=== PATIENT | male | born 1930 | race Caucasian/White ===

== ENCOUNTER 2016-11-28 13:01 | Emergency (ER) | payer MEDICARE, BC ==
[2016-11-28] MEDS ORDERED: IPRATROPIUM/ALBUTEROL 3 ML NEB INH STA (14:31)
[2016-11-28] MEDS ORDERED: IPRATROPIUM/ALBUTEROL 3 ML NEB INH ONE (14:45)
[2016-11-28] MEDS ORDERED: FUROSEMIDE 20 MG/2 ML VIAL IVP STA (16:36)
== END 2016-11-28 17:06 | disposition home or self-care (01) ==
DX: I48.2 Chronic atrial fibrillation (principal); E78.00 Pure hypercholesterolemia, unspecified; Z79.01 Long term (current) use of anticoagulants; I11.0 Hypertensive heart disease with heart failure; I50.9 Heart failure, unspecified; K21.9 Gastro-esophageal reflux disease without esophagitis; Z87.891 Personal history of nicotine dependence
CPT/HCPCS: 36415; 71020; 80053; 83690; 83880; 84484; 85025; 87275; 87276; 93005; 93010; 94640; 99283; 99284; J7620

== ENCOUNTER 2018-12-27 10:42 | Outpatient (CLI) | payer MEDICARE, BC ==
--- NOTE | 2018-12-27 14:19 | XRAY Report ---
Reason: LOW BACK PAIN Procedure Date: 12/27/2018 Accession Number: [id number] / [id number] Procedure: XR - Thoracic Spine 2 View CPT Code: FULL RESULT: EXAM: THORACIC SPINE RADIOGRAPHY EXAM DATE: 12/27/2018 10:56 AM. CLINICAL HISTORY: Pain. COMPARISON: CHEST 2 VIEW PA/LAT 11/28/2016 2:40 PM. TECHNIQUE: 2 views. FINDINGS: Alignment: Normal. No spondylolisthesis or scoliosis. Bones: No definite acute fracture or other bone lesion. Mild upper thoracic intervertebral body height loss and was a previous study. Disks: Generalized small marginal osteophytes. Disk heights are maintained. Soft Tissues: Normal. The visualized lungs and cardiomediastinal silhouette are normal. IMPRESSION: Chronic findings. No acute disease. RADIA
--- NOTE | 2018-12-27 14:25 | XRAY Report ---
Reason: LOW BACK PAIN Procedure Date: 12/27/2018 Accession Number: [id number] / [id number] Procedure: XR - Lumbar Spine 2 View CPT Code: FULL RESULT: EXAM: LUMBOSACRAL SPINE RADIOGRAPHY EXAM DATE: 12/27/2018 11:26 AM. CLINICAL HISTORY: LOW BACK PAIN. COMPARISONS: None. TECHNIQUE: 3 views. FINDINGS: Alignment: Normal. No spondylolisthesis or scoliosis. Bones: 5 lumbar vertebrae. No fractures or bone lesions. Disks: Disk space narrowing at L3-L4, L4-L5, and L5-S1, most marked at L5-S1. Mild marginal lipping at all levels. Facets: Pain degenerative changes most marked at L4-L5 and L5-S1. Sacroiliac Joints: Unremarkable. Soft Tissues: Extensive vascular calcification. Dilation of mid to distal abdominal aorta measuring 3.9 cm. Large amount of stool. IMPRESSION: 1. 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 2. 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 RADIA
== END 2018-12-27 10:43 | disposition home or self-care (01) ==
LOC: DI 10:42
PROVIDERS: ATTEND Nurse Practitioner Family
DX: M47.9 Spondylosis, unspecified (principal); M51.37 Other intervertebral disc degeneration, lumbosacral region; I71.4 Abdominal aortic aneurysm, without rupture
CPT/HCPCS: 72070; 72100

== ENCOUNTER 2020-02-14 14:13 | Emergency (ER) | payer MEDICARE, BC ==
--- NOTE | 2020-02-14 14:20 | ED Physician Documentation ---
PD HPI MALE - Stated complaint Stated Complaint: male gu - History obtained from History obtained from: Patient - History of Present Illness Timing - onset: How many hours ago (1), Today Timing - details: Abrupt onset, Still present (Seems to be tapered off at this point. He does have blood on the pad in his underwear but no apparent clots.) Associated symptoms: Hematuria (He states he went to the bathroom to stool and then felt he needed to urinate so just did that while in the sitting position still. He went to wipe off the tip of the penis and states some of the toilet paper stuck. He rubbed at it to get it off and then had onset of bright red bleeding. He states he did urinate a little bit more and the urine itself seemed clear but was getting blood from just the tip of the penis. He had not noticed any sores or lesions prior to that. He has not had any prior similar episodes.). No: Genital sore / lesion, Testiclar pain, Scrotal swelling Similar symptoms before: Has not had sx before Review of Systems Constitutional: denies: Fever, Chills GI: denies: Abdominal Pain, Nausea, Vomiting, Diarrhea : denies: Dysuria, Frequency, Discharge Skin: denies: Rash PD PAST MEDICAL HISTORY - Past Medical History Cardiovascular: Congestive heart failure, Hypertension, High cholesterol, Atrial fibrillation Respiratory: None Endocrine/Autoimmune: None GI: GERD : None HEENT: Chronic hearing loss Psych: None Musculoskeletal: None, Chronic back pain Derm: Other - Past Surgical History Past Surgical History: Yes Cardiovascular: Other - Present Medications Home Medications: Ambulatory Orders Medication Instructions Recorded Confirmed Amiodarone [Pacerone] 200 mg ORAL DAILY 04/16/15 12/16/15 Atorvastatin [Lipitor] 80 mg ORAL DAILY 04/16/15 12/16/15 Bisoprolol Fumarate [Zebeta] 5 mg ORAL DAILY 04/16/15 12/16/15 Multivit-Min/Folic/Vit K/Lycop 1 tab ORAL DAILY 04/16/15 12/16/15 [One-A-Day Men's 50 Plus Tablet] Doxycycline Monohydrate 100 mg PO BID #14 tablet 12/16/15 Omeprazole [Prilosec] 20 mg PO DAILY 12/16/15 12/16/15 lisinopriL [Lisinopril] 10 mg PO DAILY 12/16/15 12/16/15 Apixaban [Eliquis] 11/29/16 Furosemide [Lasix] 20 mg PO DAILY 11/29/16 11/29/16 - Allergies Allergies/Adverse Reactions: Allergies Allergy/AdvReac Type Severity Reaction Status Date / Time tree nut Allergy Respiratory Verified 04/16/15 23:21 - Social History Does the pt smoke?: No Smoking Status: Former smoker Does the pt drink ETOH?: No Does the pt have substance abuse?: No - Immunizations Immunizations are current?: Yes - POLST Patient has POLST: Yes PD ED PE NORMAL - Vitals Vital signs reviewed: Yes - General General: Alert and oriented X 3, No acute distress, Well developed/nourished - Abdomen Abdomen: Soft, Non tender - Male Male : Other (The patient has some blood on the penis which is bright red. It is cleaned off and there is no external source of bleeding identified. Examination just at the meatus shows there to be an apparent small mucosal tear without bleeding at this time just at the 8 o'clock position at the urethral meatus. Monsel solution is applied gently to the area. There is no further bleeding at this time so and apparent whether that was the cause of it or if there is some blood deeper in the shaft or in the bladder.) - Rectal Rectal: Deferred - Back Back: No CVA TTP - Derm Derm: Normal color, Warm and dry - Neuro Neuro: Alert and oriented X 3, No motor deficit, Normal speech Results - Vitals Vitals: Vital Signs - 24 hr 02/14/20 02/14/20 02/14/20 14:42 14:53 16:09 Temperature 35.5 C L 36.6 C Heart Rate 109 H 100 98 Respiratory 16 16 16 Rate Blood Pressure 153/99 H 148/74 H 141/81 H O2 Saturation 96 98 98 Oxygen O2 Source Room air - Labs Labs: Laboratory Tests 02/14/20 14:20 Urine Color LT RED Urine Clarity BLOODY Urine pH 6.0 Ur Specific [place] 1.020 Urine Protein TRACE Urine Glucose (UA) NEGATIVE Urine Ketones NEGATIVE Urine Occult Blood LARGE H Urine Nitrite NEGATIVE Urine Bilirubin NEGATIVE Urine Urobilinogen 0.2 (NORMAL) Ur Leukocyte Esterase TRACE H Urine RBC TNTC H Urine WBC 0-3 Ur Squamous Epith Cells NONE SEEN Urine Bacteria None Seen Ur Microscopic Review INDICATED Urine Culture Comments INDICATED PD MEDICAL DECISION MAKING - ED course Complexity details: reviewed results (No signs of infection at the urine. No apparent further bleeding at this time. He is cautioned to watch for further blood in the urine and to follow-up with urology if that persists or recurs and may be worthy of following up anyway even if there is not a recurrence.), re- evaluated patient (Patient had another urine here and it showed just a red tingeing with the minimally small clot 1 or 2 mm. Examination of the meatus again did not show any signs of bleeding at the visible part of the opening. I think the bleeding is from down deeper and so I suggested him following up with urology to look for signs of bladder pathology. Meanwhile hold his Eliquis tonight and tomorrow morning and if no further bleeding by that time then to resume the normal medicines. No signs of infection on urine test.), considered differential (This may be a mechanical bleeding from a small mucosal tear near the meatus when he wiped or rubbed the toilet tissue from the area. It could have been hematuria subsequent to his urination but the bleeding onset times with him wiping with the toilet paper rather than the urination itself.), d/w patient Departure - Departure Disposition: 01 Home, Self Care Clinical Impression: Anticoagulant long-term use Hematuria Qualifiers: Hematuria type: gross Qualified Code(s): R31.0 - Gross hematuria Condition: Stable Record reviewed to determine appropriate education?: Yes Instructions: ED Hematuria Follow-Up: Chris Arroyo MD [Primary Care Provider] - Froy Ramírez MD [Provider Admit Priv/Credential] - Comments: Hold your Eliquis tonight and tomorrow morning. If your bleeding has resolved completely, then resume the Eliquis tomorrow night. Follow-up with your primary care and urology for further investigation of the bleeding episode. The Eliquis will make it more easily to bleed but still the worry would be what caused the bleeding. The urologist will sometimes look into the bladder with a small camera to ensure no bladder lesions. Return if significant bleeding persists over the next couple of days. Discharge Date/Time: 02/14/20 16:10
[2020-02-14 15:00] LABS: BILIRUBIN,URINE NEGATIVE (NEGATIVE); GLUCOSE, URINE (UA) NEGATIVE (NEGATIVE); KETONES,URINE (UA) NEGATIVE (NEGATIVE); LEUKOCYTE ESTERASE, URINE TRACE (NEGATIVE); NITRITE,URINE NEGATIVE (NEGATIVE); OCCULT BLOOD,URINE LARGE (NEGATIVE); PROTEIN,URINE TRACE mg/dL (NEGATIVE); UROBILINOGEN,URINE 0.2 (NORMAL) E.U./dL (NORMAL)
[2020-02-14 15:16] LABS: CLARITY,URINE BLOODY (CLEAR)
[2020-02-14 15:24] LABS: BACTERIA,URINE None Seen /HPF (None Seen); RBC,URINE TNTC /HPF (0-5); SQUAMOUS EPITHELIAL CELL,UR NONE SEEN (<= Few)
[2020-02-14 16:10] VITALS: BP 141/81
== END 2020-02-14 16:10 | disposition home or self-care (01) ==
LOC: ED 14:13
DX: R31.0 Gross hematuria (principal); I10 Essential (primary) hypertension; Z87.891 Personal history of nicotine dependence; Z79.01 Long term (current) use of anticoagulants
CPT/HCPCS: 81001; 81003; 87086; 99283; 99284

== ENCOUNTER 2020-02-14 19:22 | Emergency (ER) | payer MEDICARE, BC ==
--- NOTE | 2020-02-14 19:45 | ED Physician Documentation ---
PD HPI MALE - Stated complaint Stated Complaint: MALE - History obtained from History obtained from: Patient - History of Present Illness Timing - onset: Today (89-year-old gentleman on Eliquis was seen earlier in the day for gross hematuria. There was some concern for potentially a little lesion inside the urethra that was bleeding. He went home took a nap for a while and then had another large bloody urination. It is painless. There is no dysuria. He is never had this before.) Review of Systems Constitutional: denies: Fever, Chills GI: denies: Abdominal Pain, Nausea, Vomiting : denies: Dysuria, Frequency, Hesitancy PD PAST MEDICAL HISTORY - Past Medical History Cardiovascular: Congestive heart failure, Hypertension, High cholesterol, Atrial fibrillation Respiratory: None Endocrine/Autoimmune: None GI: GERD : None HEENT: Chronic hearing loss Psych: None Musculoskeletal: None, Chronic back pain Derm: Other - Past Surgical History Past Surgical History: Yes Cardiovascular: Other - Present Medications Home Medications: Ambulatory Orders Medication Instructions Recorded Confirmed Amiodarone [Pacerone] 200 mg ORAL DAILY 04/16/15 12/16/15 Atorvastatin [Lipitor] 80 mg ORAL DAILY 04/16/15 12/16/15 Bisoprolol Fumarate [Zebeta] 5 mg ORAL DAILY 04/16/15 12/16/15 Multivit-Min/Folic/Vit K/Lycop 1 tab ORAL DAILY 04/16/15 12/16/15 [One-A-Day Men's 50 Plus Tablet] Doxycycline Monohydrate 100 mg PO BID #14 tablet 12/16/15 Omeprazole [Prilosec] 20 mg PO DAILY 12/16/15 12/16/15 lisinopriL [Lisinopril] 10 mg PO DAILY 12/16/15 12/16/15 Apixaban [Eliquis] 11/29/16 Furosemide [Lasix] 20 mg PO DAILY 11/29/16 11/29/16 - Allergies Allergies/Adverse Reactions: Allergies Allergy/AdvReac Type Severity Reaction Status Date / Time tree nut Allergy Respiratory Verified 04/16/15 23:21 - Social History Does the pt smoke?: No Smoking Status: Former smoker Does the pt drink ETOH?: No Does the pt have substance abuse?: No - Immunizations Immunizations are current?: Yes - POLST Patient has POLST: Yes PD ED PE NORMAL - Vitals Vital signs reviewed: Yes - General General: Alert and oriented X 3, No acute distress - Male Male : Other (There is a large clot at the meatus, when it is removed it otherwise looks normal. I do not see any active bleeding.) - Neuro Neuro: Alert and oriented X 3, Normal speech Results - Vitals Vitals: Vital Signs - 24 hr 02/14/20 19:30 Temperature 35.9 C L Heart Rate 69 Respiratory 16 Rate Blood Pressure 150/99 H O2 Saturation 96 Oxygen O2 Source Room air PD MEDICAL DECISION MAKING - ED course ED course: 89-year-old gentleman presents with gross hematuria. The pattern sounds like it is a urethral source as opposed to the bladder. He was able to urinate here, it was bloody but not opaque with minimal clots. I offered a catheter which he declined and prefers to see if it will stop on its own. Departure - Departure Disposition: 01 Home, Self Care Clinical Impression: Hematuria Qualifiers: Hematuria type: gross Qualified Code(s): R31.0 - Gross hematuria Condition: Good Record reviewed to determine appropriate education?: Yes Comments: Follow Dr. Esposito's instructions from earlier in the day. Drink plenty of water and return if worse. Follow-up with urologist next week.
[2020-02-14 21:09] VITALS: BP 144/95
== END 2020-02-14 21:08 | disposition home or self-care (01) ==
LOC: ED 19:22
DX: R31.0 Gross hematuria (principal); I10 Essential (primary) hypertension; Z87.891 Personal history of nicotine dependence

== ENCOUNTER 2021-02-28 07:00 | Outpatient (CLI) | payer MEDICARE, BC ==
--- NOTE | 2021-02-28 15:20 | XRAY Report ---
PROCEDURE: Chest 2 View X-Ray INDICATIONS: SHORTNESS OF BREATH TECHNIQUE: 2 view(s) of the chest. COMPARISON: 11/28/2016. FINDINGS: Surgical changes and devices: None. Lungs and pleura: There is mild pulmonary vascular congestion and small right pleural effusion with r ight basilar atelectasis. No gross pneumothorax. Mediastinum: Mildly tortuous thoracic aorta is seen. Heart size is enlarged. Bones and chest wall: No suspicious bony abnormalities. Soft tissues appear unremarkable. IMPRESSION: Cardiomegaly and mild congestion with small right pleural effusion and right basilar ate lectasis. No gross pneumothorax. Reviewed by: Gilberto Baird MD on 02/28/2021 3:18 PM PDT Approved by: Gilberto Baird MD on 02/28/2021 3:18 PM PDT Station ID: [id number]
== END 2021-02-28 23:59 | disposition home or self-care (01) ==
LOC: DI.S 07:00
PROVIDERS: ATTEND Physician Assistant Medical
DX: I51.7 Cardiomegaly (principal); R09.89 Other specified symptoms and signs involving the circulatory and respiratory systems; J90 Pleural effusion, not elsewhere classified; J98.11 Atelectasis; R06.02 Shortness of breath; R53.83 Other fatigue; R42 Dizziness and giddiness; Z79.01 Long term (current) use of anticoagulants
CPT/HCPCS: 36415; 80053; 84443; 85025

== ENCOUNTER 2021-02-28 08:00 | Outpatient (CLI) | payer MEDICARE, BC ==
[2021-02-28 19:55] LABS: BASOPHILS % (AUTO) 0.5 %; EOSINOPHILS # (AUTO) 0.1 10^3/uL (0.0-0.7); EOSINOPHILS % (AUTO) 1.4 %; HCT - HEMATOCRIT 43.6 % (42.0-52.0); HGB - HEMOGLOBIN 13.7 g/dL (14.0-18.0); LYMPHOCYTES # (AUTO) 1.5 10^3/uL (1.5-3.5); LYMPHOCYTES % (AUTO) 17.8 %; MEAN CORPUSCULAR HEMOGLOBIN 32.5 pg (27.0-31.0); MEAN CORPUSCULAR HGB CONC 31.4 g/dL (32.0-36.0); MEAN CORPUSCULAR VOLUME 103.6 fL (80.0-94.0); MEAN PLATELET VOLUME 11.4 fL (7.4-11.4); MONOCYTES # (AUTO) 1.1 10^3/uL (0.0-1.0); NEUTROPHILS # (AUTO) 5.6 10^3/uL (1.5-6.6); NEUTROPHILS % (AUTO) 67.1 %; PLT - PLATELET COUNT 237 10^3/uL (130-450); RED BLOOD COUNT 4.21 10^6/uL (4.70-6.10); WHITE BLOOD COUNT 8.4 x10^3/uL (4.8-10.8)
[2021-02-28 20:11] LABS: ALBUMIN/GLOBULIN RATIO 1.5 (1.0-2.2); BILIRUBIN,TOTAL 2.5 mg/dL (0.2-1.0); CALCIUM 9.3 mg/dL (8.5-10.3); CREATININE 1.1 mg/dL (0.6-1.2); POTASSIUM 4.2 mmol/L (3.5-5.0); TOTAL PROTEIN 6.7 g/dL (6.7-8.2)
[2021-02-28 20:24] LABS: THYROID STIMULATING HORMONE 2.73 uIU/mL (0.34-5.60)
== END 2021-02-28 23:59 | disposition home or self-care (01) ==
LOC: LAB.S 08:00
PROVIDERS: ATTEND Physician Assistant Medical
DX: R06.02 Shortness of breath (principal); R53.83 Other fatigue; R42 Dizziness and giddiness; Z79.01 Long term (current) use of anticoagulants
CPT/HCPCS: 36415; 80053; 84443; 85025

== ENCOUNTER 2021-03-04 11:31 | Observation (INO) | payer MEDICARE, BC ==
--- OUTSIDE RECORDS SUMMARY | 2021-03-04 11:35 | EXTERNAL MEDICAL SUMMARY RPT | Continuity of Care Document ---
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 Unavailable Problems date description facility [id number] Alcohol use [facility] 20210228 CBC W/Diff/Plt [facility] 20210228 Dizziness and giddiness [facility] 20210228 Dizziness [facility] 20210228 Fever with chills [facility] 20210228 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 [facility] 20210228 Long-term (current) use of [facility] 20210228 Shortness of breath [facility] 20210228 TSH WITH REFLEX TO FT4 [facility] 20210228 X-RAY EXAM CHEST 2 VIEWS [facility] 20210228 Anticoagulant therapy [facility] 20210228 COMPREHENSIVE METABOLIC PANEL [facility] 20210228 Details of drug misuse behavior [facility] 20210228 Dyspnea [facility] 20210228 Fatigue [facility] 20210228 Fever, unspecified [facility] 20210228 Former smoker [facility] 20210228 Other fatigue [facility] 20210228 Other malaise and fatigue [facility] 20210228 Tobacco smoking status NHIS [facility] [id number] Total score? [facility] [id number] Congestive heart failure [facility] [id number] Congestive heart failure, unspecified [facility] 62866830 Malignant neoplasm of pancreas, part W [facility] [id number] Malignant neoplasm of pancreas, [facility] 90425692 Heart failure, unspecified [facility] 78854435 Malignant tumor of pancreas [facility] Medications date description facility [id number] APIXABAN [facility] [place] [id number] SPIRONOLACTONE-HCTZ [facility] [place] [id number] FUROSEMIDE [facility] [place] [id number] ATORVASTATIN CALCIUM [facility] [place] [id number] BISOPROLOL FUMARATE [facility] [place] [id number] DIGOXIN [facility] [place] [id number] DIGOXIN [facility] [place] [id number] APIXABAN [facility] [place] [id number] SPIRONOLACTONE-HCTZ [facility] [place] [id number] ATORVASTATIN CALCIUM [facility] [place] [id number] FUROSEMIDE [facility] [place] [id number] BISOPROLOL FUMARATE [facility] [place] [id number] APIXABAN [facility] [place] [id number] SPIRONOLACTONE-HCTZ [facility] [place] [id number] FUROSEMIDE [facility] [place] [id number] ATORVASTATIN CALCIUM [facility] [place] [id number] BISOPROLOL FUMARATE [facility] [place] [id number] DIGOXIN [facility] [place] [id number] DIGOXIN [facility] [place] [id number] APIXABAN [facility] [place] [id number] SPIRONOLACTONE-HCTZ [facility] [place] [id number] ATORVASTATIN CALCIUM [facility] [place] [id number] FUROSEMIDE [facility] [place] [id number] BISOPROLOL FUMARATE [facility] [place] Procedures date description facility [id number] TSH WITH REFLEX TO FT4 [facility] [place] date description facility [id number] COMPREHENSIVE METABOLIC PANEL [facility] [place] date description facility [id number] POC URINALYSIS DIP [facility] [place] date description facility 66947659 CBC W/Diff/Plt [facility] [place] date description facility 24890053 TSH WITH REFLEX TO FT4 [facility] [place] date description facility [id number] COMPREHENSIVE METABOLIC PANEL [facility] [place] date description facility 14358712 POC URINALYSIS DIP [facility] [place] date description facility 14725094 CBC W/Diff/Plt [facility] [place] Results test status date ordered by attending specimen cami e ALBUMIN_GLOBULIN_RATIO unknown 24630086 unknown unknown unknown T unknown 08476113 unknown unknown unknown T unknown 51968220 unknown unknown unknown ALKALINE_PHOSPHATASE unknown 56821626 unknown unknown un known ALT_ALANINE_AMINOTRANS unknown 77605030 unknown unknown unknown FERASE T unknown 24637550 unknown unknown unknown T unknown 48155682 unknown unknown unknown T unknown 32174153 unknown unknown unknown T unknown [id number] unknown unknown unknown BASOPHILS_AUTO_ unknown 90435494 unknown unknown unknown BILIRUBIN_TOTAL unknown 71581492 unknown unknown unknown T unknown 69682683 unknown unknown unknown T unknown 21116237 unknown unknown unknown T unknown 74838836 unknown unknown unknown T unknown 44526755 unknown unknown unknown T unknown 12708815 unknown unknown unknown T unknown 23165738 unknown unknown unknown EOSINOPHILS_AUTO_ unknown 62792728 unknown unknown unkno wn T unknown 46826464 unknown unknown unknown GFR_-_MDRD unknown 14744096 unknown unknown unknown T unknown 82864040 unknown unknown unknown T unknown 41477372 unknown unknown unknown T unknown 04486291 unknown unknown unknown T unknown 64965290 unknown unknown unknown T unknown 98521832 unknown unknown unknown T unknown 25997018 unknown unknown unknown T unknown 13835243 unknown unknown unknown LYMPHOCYTES_AUTO_ unknown 44888789 unknown unknown unkno wn T unknown 73463397 unknown unknown unknown T unknown 70498581 unknown unknown unknown T unknown 56002015 unknown unknown unknown T unknown 26882334 unknown unknown unknown MONOCYTES_AUTO_ unknown 33691439 unknown unknown unknown T unknown [id number] unknown unknown unknown T unknown 25844636 unknown unknown unknown T unknown 10838774 unknown unknown unknown NEUTROPHILS_AUTO_ unknown 34138698 unknown unknown unkno wn T unknown 07510437 unknown unknown unknown T unknown 10708516 unknown unknown unknown T unknown 81011263 unknown unknown unknown T unknown 91300788 unknown unknown unknown T unknown 06009111 unknown unknown unknown T unknown 00199550 unknown unknown unknown T unknown 02667552 unknown unknown unknown DIPSTICK_URINE_STRIP_L unknown 67163726 unknown unknown unknown OT_NUMBER red_blood_cell_distrib unknown 07117152 unknown unknown unknown ution_width mean_corpuscular_hemog unknown 17459724 unknown unknown unknown lobin_RBC calcium_serum unknown 59117780 unknown unknown unknown Urine_HCG_QC_Result_CL unknown 07443481 unknown unknown unknown IA_Waived_ Thyrotropin_Units_volu unknown 81254122 unknown unknown unknown me_in_Serum_or_Plasma_b y_Detection_limit_lt_0. 05_mIU_L protein_urine_semiquan unknown 28730575 unknown unknown unknown titative_dipstick_ glucose_urine_semiquan unknown 92460397 unknown unknown unknown titative chloride_serum unknown 23721167 unknown unknown unknown Erythrocytes_area_in_U unknown 60706418 unknown unknown unknown rine_sediment_by_Micros copy_high_power_field albumin_globulin_ratio unknown 47421631 unknown unknown unknown _serum sodium_serum unknown 80081233 unknown unknown unknown RBC_urine_dipstick unknown 43339149 unknown unknown unkn own mean_corpuscular_hemog unknown 38028183 unknown unknown unknown lobin_concentration_rbc Alanine_aminotransfera unknown 36747329 unknown unknown unknown se_Enzymatic_activity_v olume_in_Serum_or_Plasm a Albumin_Mass_volume_in unknown 25062571 unknown unknown unknown _Serum_or_Plasma Albumin_Presence_in_Ur unknown 17877740 unknown unknown unknown ine Albumin_Globulin_Mass_ unknown 77515625 unknown unknown unknown Ratio_in_Serum_or_Plasm a Alkaline_phosphatase_E unknown 84268361 unknown unknown unknown nzymatic_activity_volum e_in_Blood creatinine_serum unknown 34175621 unknown unknown unknow n Anion_gap_4_in_Serum_o unknown 46798619 unknown unknown unknown r_Plasma Aspartate_aminotransfe unknown 39101363 unknown unknown unknown rase_Enzymatic_activity _volume_in_Serum_or_Pla sma Bilirubin.total_Mass_v unknown 53030294 unknown unknown unknown olume_in_Serum_or_Plasm a albumin_serum unknown 00253378 unknown unknown unknown Calcium_Moles_volume_i unknown 83363605 unknown unknown unknown n_Serum_or_Plasma carbon_dioxide_serum_t unknown 22560739 unknown unknown unknown otal Chloride_Moles_volume_ unknown 16880548 unknown unknown unknown in_Serum_or_Plasma Creatinine_Mass_volume unknown 57103843 unknown unknown unknown _in_Serum_or_Plasma Globulin_Mass_volume_i unknown 13516819 unknown unknown unknown n_Serum Glucose_Mass_volume_in unknown 21374132 unknown unknown unknown _Serum_or_Plasma neutrophil_count_blood unknown 32883433 unknown unknown unknown lymphocyte_count_blood unknown 89397365 unknown unknown unknown monocyte_count_blood unknown 52241545 unknown unknown un known basophil_count_blood unknown 93246714 unknown unknown un known urine_color unknown 39511410 unknown unknown unknown mean_platelet_volume unknown 78367057 unknown unknown un known anion_gap_serum unknown 98979687 unknown unknown unknown eosinophil_count_blood unknown 01443761 unknown unknown unknown Protein_Mass_volume_in unknown 63679432 unknown unknown unknown _Serum_or_Plasma Sodium_Moles_volume_in unknown 42152432 unknown unknown unknown _Serum_or_Plasma alkaline_phosphatase_s unknown 39050700 unknown unknown unknown loi globulin_serum unknown 61889237 unknown unknown unknown Urea_nitrogen_Mass_vol unknown 34904611 unknown unknown unknown ume_in_Serum_or_Plasma mean_corpuscular_volum unknown 84642429 unknown unknown unknown e_RBC bilirubin_urine unknown 74514824 unknown unknown unknown ketones_urine_by_test_ unknown 57287552 unknown unknown unknown strip nitrite_urine_semiquan unknown 23663617 unknown unknown unknown titative pH_urine_semiquantitat unknown 31641461 unknown unknown unknown bimal specific_gravity_urine unknown 39477794 unknown unknown unknown urobilinogen_urine_sem unknown 20911783 unknown unknown unknown iquantitative_dipstick_ leukocyte_esterase_uri unknown 09852724 unknown unknown unknown ne_by_dipstick appearance_urine unknown 93857858 unknown unknown unknow n potassium_blood unknown 02105945 unknown unknown unknown blood_glucose unknown 54840923 unknown unknown unknown protein_total_serum unknown 23568265 unknown unknown unk nown aspartate_aminotransfe unknown 19402282 unknown unknown unknown rase_SGOT_serum carbon_dioxide_serum_t unknown 99811800 unknown unknown unknown otal alanine_aminotransfera unknown 56156965 unknown unknown unknown se_SGPT_serum bilirubin_serum_total unknown 92637126 unknown unknown u nknown Hematocrit_Volume_Frac unknown 76397297 unknown unknown unknown tion_of_Blood_by_Automa ted_count urinalysis_routine unknown 56725581 unknown unknown unkn own Glomerular_filtration_ unknown 08751430 unknown unknown unknown rate_1.73_sq_M.predicte d_among_non-blacks_Volu me_Rate_Area_in_Serum_P lasma_or_Blood_by_Creat inine-based_formula_MDR D_ culture_status unknown 48267464 unknown unknown unknown Appearance_of_Urine unknown 07165439 unknown unknown unk nown Bilirubin.total_Presen unknown 71997375 unknown unknown unknown ce_in_Urine_by_Test_str ip Color_of_Urine unknown 10849252 unknown unknown unknown Glucose_Mass_volume_in unknown 12836731 unknown unknown unknown _Urine_by_Test_strip Ketones_Mass_volume_in unknown 75625824 unknown unknown unknown _Urine_by_Test_strip Leukocyte_esterase_Pre unknown 16601642 unknown unknown unknown sence_in_Urine_by_Test_ strip Nitrite_Presence_in_Ur unknown 87382809 unknown unknown unknown ine_by_Test_strip pH_of_Urine_by_Test_st unknown 64576217 unknown unknown unknown rip Specific_gravity_of_Ur unknown 09212196 unknown unknown unknown ine_by_Test_strip Urobilinogen_Presence_ unknown 96604542 unknown unknown unknown in_Urine_by_Test_strip potassium_blood unknown 48061407 unknown unknown unknown hematocrit_blood unknown 43494078 unknown unknown unknow n hemoglobin_blood unknown 66271332 unknown unknown unknow n platelet_count unknown 23500678 unknown unknown unknown Glomerular_Filtration_ unknown 31885881 unknown unknown unknown rate Leukocytes_volume_in_B unknown 28592996 unknown unknown unknown lood_by_Automated_count erythrocyte_RBC_count unknown 63897941 unknown unknown u nknown leukocyte_count_blood unknown 53575360 unknown unknown u nknown Basophils_volume_in_Bl unknown 91166618 unknown unknown unknown ood_by_Manual_count eosinophil_count_blood unknown 30587034 unknown unknown unknown Hemoglobin_Mass_volume unknown 97690153 unknown unknown unknown _in_Blood lymphocyte_count_blood unknown 82588954 unknown unknown unknown monocyte_count_blood unknown 67420098 unknown unknown un known neutrophil_count_blood unknown 91036426 unknown unknown unknown Platelet_mean_volume_E unknown 28739735 unknown unknown unknown ntitic_volume_in_Blood_ by_Rees-Ceci Platelets_volume_in_Bl unknown 99815417 unknown unknown unknown ood_by_Automated_count MCH_Entitic_mass_by_Au unknown 22043938 unknown unknown unknown tomated_count MCV_Entitic_volume_by_ unknown 97541154 unknown unknown unknown Automated_count Erythrocyte_distributi unknown 90628509 unknown unknown unknown on_width_Ratio_by_Autom ated_count Erythrocytes_volume_in unknown 65761769 unknown unknown unknown _Blood_by_Automated_cou nt urea_nitrogen_blood unknown 76788230 unknown unknown unk nown TSH unknown 23321383 unknown unknown unknown THYROID_STIMULATING_HO unknown 44461295 unknown unknown unknown RMONE ALBUMIN_GLOBULIN_RATIO unknown 15369170 unknown unknown unknown T unknown 37968485 unknown unknown unknown T unknown 14244444 unknown unknown unknown ALKALINE_PHOSPHATASE unknown 77362406 unknown unknown un known ALT_ALANINE_AMINOTRANS unknown 73769014 unknown unknown unknown FERASE T unknown 08520707 unknown unknown unknown T unknown 81967578 unknown unknown unknown T unknown 69239184 unknown unknown unknown T unknown 57691079 unknown unknown unknown BASOPHILS_AUTO_ unknown 02328543 unknown unknown unknown BILIRUBIN_TOTAL unknown 91904723 unknown unknown unknown T unknown 63896111 unknown unknown unknown T unknown 22372474 unknown unknown unknown T unknown 58784448 unknown unknown unknown T unknown 32835641 unknown unknown unknown T unknown 24450110 unknown unknown unknown T unknown 60184359 unknown unknown unknown EOSINOPHILS_AUTO_ unknown 12483910 unknown unknown unkno wn T unknown 90736960 unknown unknown unknown GFR_-_MDRD unknown 51306484 unknown unknown unknown T unknown 35027356 unknown unknown unknown T unknown 82003846 unknown unknown unknown T unknown 03207787 unknown unknown unknown T unknown 59497087 unknown unknown unknown T unknown 67655153 unknown unknown unknown T unknown 72165547 unknown unknown unknown T unknown 18464181 unknown unknown unknown LYMPHOCYTES_AUTO_ unknown 59768490 unknown unknown unkno wn T unknown 16274989 unknown unknown unknown T unknown 04781104 unknown unknown unknown T unknown 64299581 unknown unknown unknown T unknown 86978271 unknown unknown unknown MONOCYTES_AUTO_ unknown 34967660 unknown unknown unknown T unknown 74346134 unknown unknown unknown T unknown 67479036 unknown unknown unknown T unknown 60910364 unknown unknown unknown NEUTROPHILS_AUTO_ unknown 24233094 unknown unknown unkno wn T unknown 87743406 unknown unknown unknown T unknown 39013167 unknown unknown unknown T unknown 81160180 unknown unknown unknown T unknown 90814029 unknown unknown unknown T unknown 85770767 unknown unknown unknown T unknown 22104630 unknown unknown unknown T unknown 66967049 unknown unknown unknown DIPSTICK_URINE_STRIP_L unknown 61061644 unknown unknown unknown OT_NUMBER red_blood_cell_distrib unknown 13809527 unknown unknown unknown ution_width mean_corpuscular_hemog unknown 97274718 unknown unknown unknown lobin_RBC calcium_serum unknown 60463170 unknown unknown unknown Urine_HCG_QC_Result_CL unknown 10122892 unknown unknown unknown IA_Waived_ Thyrotropin_Units_volu unknown 47443502 unknown unknown unknown me_in_Serum_or_Plasma_b y_Detection_limit_lt_0. 05_mIU_L protein_urine_semiquan unknown 15817968 unknown unknown unknown titative_dipstick_ glucose_urine_semiquan unknown 67260959 unknown unknown unknown titative chloride_serum unknown 81546714 unknown unknown unknown Erythrocytes_area_in_U unknown 32726538 unknown unknown unknown rine_sediment_by_Micros copy_high_power_field albumin_globulin_ratio unknown 15537812 unknown unknown unknown _serum sodium_serum unknown 07702737 unknown unknown unknown RBC_urine_dipstick unknown 11170751 unknown unknown unkn own mean_corpuscular_hemog unknown 17360787 unknown unknown unknown lobin_concentration_rbc Alanine_aminotransfera unknown 18419467 unknown unknown unknown se_Enzymatic_activity_v olume_in_Serum_or_Plasm a Albumin_Mass_volume_in unknown 63685422 unknown unknown unknown _Serum_or_Plasma Albumin_Presence_in_Ur unknown 72871393 unknown unknown unknown ine Albumin_Globulin_Mass_ unknown 16897988 unknown unknown unknown Ratio_in_Serum_or_Plasm a Alkaline_phosphatase_E unknown 73105906 unknown unknown unknown nzymatic_activity_volum e_in_Blood creatinine_serum unknown 21113614 unknown unknown unknow n Anion_gap_4_in_Serum_o unknown 31755574 unknown unknown unknown r_Plasma Aspartate_aminotransfe unknown 73713805 unknown unknown unknown rase_Enzymatic_activity _volume_in_Serum_or_Pla sma Bilirubin.total_Mass_v unknown 28028567 unknown unknown unknown olume_in_Serum_or_Plasm a albumin_serum unknown 61425374 unknown unknown unknown Calcium_Moles_volume_i unknown 42534998 unknown unknown unknown n_Serum_or_Plasma carbon_dioxide_serum_t unknown 56999346 unknown unknown unknown otal Chloride_Moles_volume_ unknown 14252795 unknown unknown unknown in_Serum_or_Plasma Creatinine_Mass_volume unknown 76192313 unknown unknown unknown _in_Serum_or_Plasma Globulin_Mass_volume_i unknown 22283261 unknown unknown unknown n_Serum Glucose_Mass_volume_in unknown 90460090 unknown unknown unknown _Serum_or_Plasma neutrophil_count_blood unknown 96792475 unknown unknown unknown lymphocyte_count_blood unknown 78689701 unknown unknown unknown monocyte_count_blood unknown 30590119 unknown unknown un known basophil_count_blood unknown 93721430 unknown unknown un known urine_color unknown 25523398 unknown unknown unknown mean_platelet_volume unknown 91361553 unknown unknown un known anion_gap_serum unknown 90726398 unknown unknown unknown eosinophil_count_blood unknown 44430120 unknown unknown unknown Protein_Mass_volume_in unknown 01727348 unknown unknown unknown _Serum_or_Plasma Sodium_Moles_volume_in unknown 40610745 unknown unknown unknown _Serum_or_Plasma alkaline_phosphatase_s unknown 48685155 unknown unknown unknown loi globulin_serum unknown 44397888 unknown unknown unknown Urea_nitrogen_Mass_vol unknown 43991196 unknown unknown unknown ume_in_Serum_or_Plasma mean_corpuscular_volum unknown 60063781 unknown unknown unknown e_RBC bilirubin_urine unknown 41665668 unknown unknown unknown ketones_urine_by_test_ unknown 13701011 unknown unknown unknown strip nitrite_urine_semiquan unknown 77245245 unknown unknown unknown titative pH_urine_semiquantitat unknown 08128625 unknown unknown unknown bimal specific_gravity_urine unknown 09616099 unknown unknown unknown urobilinogen_urine_sem unknown 69363883 unknown unknown unknown iquantitative_dipstick_ leukocyte_esterase_uri unknown 07775500 unknown unknown unknown ne_by_dipstick appearance_urine unknown 16899672 unknown unknown unknow n potassium_blood unknown 57479132 unknown unknown unknown blood_glucose unknown 82602913 unknown unknown unknown protein_total_serum unknown 66034293 unknown unknown unk nown aspartate_aminotransfe unknown 98299138 unknown unknown unknown rase_SGOT_serum carbon_dioxide_serum_t unknown 51857418 unknown unknown unknown otal alanine_aminotransfera unknown 75713180 unknown unknown unknown se_SGPT_serum bilirubin_serum_total unknown 20339659 unknown unknown u nknown Hematocrit_Volume_Frac unknown 64905076 unknown unknown unknown tion_of_Blood_by_Automa ted_count urinalysis_routine unknown 58798836 unknown unknown unkn own Glomerular_filtration_ unknown 29062921 unknown unknown unknown rate_1.73_sq_M.predicte d_among_non-blacks_Volu me_Rate_Area_in_Serum_P lasma_or_Blood_by_Creat inine-based_formula_MDR D_ culture_status unknown 37195647 unknown unknown unknown Appearance_of_Urine unknown 62895412 unknown unknown unk nown Bilirubin.total_Presen unknown 90689361 unknown unknown unknown ce_in_Urine_by_Test_str ip Color_of_Urine unknown 29487563 unknown unknown unknown Glucose_Mass_volume_in unknown 22500128 unknown unknown unknown _Urine_by_Test_strip Ketones_Mass_volume_in unknown 20078818 unknown unknown unknown _Urine_by_Test_strip Leukocyte_esterase_Pre unknown 74556205 unknown unknown unknown sence_in_Urine_by_Test_ strip Nitrite_Presence_in_Ur unknown 40293599 unknown unknown unknown ine_by_Test_strip pH_of_Urine_by_Test_st unknown 87540793 unknown unknown unknown rip Specific_gravity_of_Ur unknown 30617631 unknown unknown unknown ine_by_Test_strip Urobilinogen_Presence_ unknown 11494848 unknown unknown unknown in_Urine_by_Test_strip potassium_blood unknown 32264885 unknown unknown unknown hematocrit_blood unknown 50322028 unknown unknown unknow n hemoglobin_blood unknown 94297216 unknown unknown unknow n platelet_count unknown 50369770 unknown unknown unknown Glomerular_Filtration_ unknown 45488262 unknown unknown unknown rate Leukocytes_volume_in_B unknown 29751724 unknown unknown unknown lood_by_Automated_count erythrocyte_RBC_count unknown 51133472 unknown unknown u nknown leukocyte_count_blood unknown 50439335 unknown unknown u nknown Basophils_volume_in_Bl unknown 93529206 unknown unknown unknown ood_by_Manual_count eosinophil_count_blood unknown 49703037 unknown unknown unknown Hemoglobin_Mass_volume unknown 87597157 unknown unknown unknown _in_Blood lymphocyte_count_blood unknown 44601546 unknown unknown unknown monocyte_count_blood unknown 64450995 unknown unknown un known neutrophil_count_blood unknown 33729434 unknown unknown unknown Platelet_mean_volume_E unknown 63301587 unknown unknown unknown ntitic_volume_in_Blood_ by_Rees-Ceci Platelets_volume_in_Bl unknown 57579902 unknown unknown unknown ood_by_Automated_count MCH_Entitic_mass_by_Au unknown 86169883 unknown unknown unknown tomated_count MCV_Entitic_volume_by_ unknown [id number] unknown unknown unknown Automated_count Erythrocyte_distributi unknown [id number] unknown unknown unknown on_width_Ratio_by_Autom ated_count Erythrocytes_volume_in unknown [id number] unknown unknown unknown _Blood_by_Automated_cou nt urea_nitrogen_blood unknown [id number] unknown unknown unk nown TSH unknown [id number] unknown unknown unknown THYROID_STIMULATING_HO unknown [id number] unknown unknown unknown [facility] facility observation status value reference units lab abnor mal line range code notes [facility] ALBUMIN_GLOB unknown 1.5 unknown AGRATIO unkno wn unknown Clinic ULIN_RATIO [facility] [place] [facility] T unknown 4.0 unknown g/dL ALB unknown unk now Clinic [facility] [place] [facility] T unknown 59 unknown U/L ALK_PHO unknown un known Clinic S [facility] [place] [facility] ALKALINE_PHO unknown 59 unknown U/L ALP unknow n unknown Clinic SPHATASE [facility] [place] [facility] ALT_ALANINE_ unknown 44 unknown U/L ALT unknow n unknown Clinic AMINOTRANSFER Primary ASE [facility] [place] [facility] T unknown 44 unknown U/L ALT_SGP unknown un known Clinic T_ [facility] [place] [facility] T unknown 31 unknown U/L AST unknown unk now Clinic [facility] [place] [facility] T unknown 1.5 unknown A_G_RAT unknown un known Clinic IO [facility] [place] [facility] T unknown 0.0 10 unknown BASO_AU unknown un known Clinic 3/UL TO_ [facility] [place] [facility] BASOPHILS_AU unknown 0.0 10 unknown BA_ unknow n unknown Clinic TO_ 3/UL [facility] [place] [facility] BILIRUBIN_TO unknown 2.5 unknown mg/dL BILIT unknow n unknown Clinic GIANNA [facility] [place] [facility] T unknown 28 unknown mg/dL BUN unknown unk now Clinic [facility] [place] [facility] T unknown 9.3 unknown mg/dL CA unknown unk now Clinic [facility] [place] [facility] T unknown 104 unknown mmol/ CL unknown unk nown Clinic L [facility] [place] [facility] T unknown 28 unknown mmol/ CO2 unknown unk nown Clinic L [facility] [place] [facility] T unknown 1.1 unknown mg/dL CREAT unknown unk now Clinic [facility] [place] [facility] T unknown 0.1 10 unknown EOS_AUT unknown un known Clinic 3/UL O_ [facility] [place] [facility] EOSINOPHILS_ unknown 0.1 10 unknown EO_ unknow n unknown Clinic AUTO_ 3/UL [facility] [place] [facility] T unknown 9.0 unknown GAP unknown [facility] [place] [facility] GFR_-_MDRD unknown 63 unknown mL/mi GFR unknown unknown Clinic n [facility] [place] [facility] T unknown 63 unknown mL/mi GFR_-_M unknown un known Clinic n DRD [facility] [place] [facility] T unknown 2.7 unknown GLOB unknown [facility] [place] [facility] T unknown 167 unknown mg/dL GLU unknown [facility] [place] [facility] T unknown 43.6 unknown % HCT unknown [facility] [place] [facility] T unknown 13.7 unknown g/dL HGB unknown [facility] [place] [facility] T unknown 4.2 unknown meq/L K unknown [facility] [place] [facility] T unknown 1.5 10 unknown LYMPH_A unknown un known Clinic 3/UL UTO_ [facility] [place] [facility] LYMPHOCYTES_ unknown 1.5 10 unknown LY_ unknow n unknown Clinic AUTO_ 3/UL [facility] [place] [facility] unknown 32.5 unknown pg MCH unknown [facility] [place] [facility] unknown 31.4 unknown g/dL MCHC unknown [facility] [place] [facility] T unknown 103.6 unknown fL MCV unknown [facility] [place] [facility] T unknown 1.1 10 unknown MONO_AU unknown un known Clinic 3/UL TO_ [facility] [place] [facility] MONOCYTES_AU unknown 1.1 10 unknown MO_ unknow n unknown Clinic TO_ 3/UL [facility] [place] [facility] T unknown 11.4 unknown fL MPV unknown [facility] [place] [facility] T unknown 141 unknown mmol/ NA unknown [facility] L [facility] [place] [facility] T unknown 5.6 10 unknown NEUT_AU unknown un known Clinic 3/UL TO_ [facility] [place] [facility] NEUTROPHILS_ unknown 5.6 10 unknown NE_ unknow n unknown Clinic AUTO_ 3/UL [facility] [place] [facility] T unknown 237 10 unknown PLT unknown unk nown Clinic 3/UL [facility] [place] [facility] T unknown 6.7 unknown g/dL PRO_TOT unknown un known Clinic AL [facility] [place] [facility] T unknown 4.21 10 unknown RBC unknown un known Clinic 6/UL [facility] [place] [facility] T unknown 15.0 unknown % RDW unknown unk [facility] Clinic [facility] [place] [facility] T unknown 2.5 unknown mg/dL TOTAL_B unknown un known Clinic AMARILYS [facility] [place] [facility] T unknown 0.04518 unknown m[iU] TSH unknown un known Clinic /mL [facility] [place] [facility] T unknown 8.4 X10 unknown WBC unknown un known Clinic 3/UL [facility] [place] [facility] DIPSTICK_URI unknown 5067 unknown _101400 unkno wn unknown Clinic NE_STRIP_LOT_ Primary NUMBER [facility] [place] [facility] red_blood_ce unknown 15.0 unknown % _1030 unknow n unknown Clinic ll_distributi Primary on_width [facility] [place] [facility] mean_corpusc unknown 32.5 unknown pg _1031 unknow n unknown Clinic ular_hemoglob Primary in_RBC [facility] [place] [facility] calcium_seru unknown 9.3 unknown mg/dL _11 unknow n unknown Clinic m [facility] [place] [facility] Urine_HCG_QC unknown Yes unknown _[id number] unkno wn unknown Clinic _Result_CLIA_ Primary Waived_ [facility] [place] [facility] Thyrotropin_ unknown 0.77463 unknown m[iU] _11579- unkn own unknown Clinic Units_volume_ /mL 0 Primary in_Serum_or_P Care & lasma_by_Dete Ancillary ction_limit_l Services t_0.05_mIU_L [facility] protein_urin unknown negative unknown _118 unkn own unknown Clinic e_semiquantit Primary ative_dipstic Care & k_ [facility]illary [facility] [place] [facility] glucose_urin unknown negative unknown _123 unkn own unknown Clinic e_semiquantit Primary ative [facility] [place] [facility] chloride_ser unknown 104 unknown mmol/ _13 unknow n unknown Clinic um L [facility] [place] [facility] Erythrocytes unknown negative unknown _13945- unk nown unknown Clinic _area_in_Urin 1 Primary e_sediment_by Care & _Microscopy_h Ancillary igh_power_fie Services ld [place] [facility] albumin_glob unknown 1.5 unknown _146 unknow n unknown Clinic ulin_ratio_se Primary rum [facility] [place] [facility] sodium_serum unknown 141 unknown mmol/ _159 unknow n unknown Clinic L [facility] [place] [facility] RBC_urine_di unknown negative unknown _170000 unk nown unknown Clinic pstick 5 [facility] [place] [facility] mean_corpusc unknown 31.4 unknown g/dL _17029 unknow n unknown Clinic ular_hemoglob Primary in_concentrat Care & ion_rbc [facility] [place] [facility] Alanine_amin unknown 44 unknown U/L _1742-6 unkno wn unknown Clinic otransferase_ Primary Enzymatic_act Care & ivity_volume_ Ancillary in_Serum_or_P Services lasma [place] [facility] Albumin_Mass unknown 4.0 unknown g/dL _1751-7 unkno wn unknown Clinic _volume_in_Se Primary rum_or_Plasma [facility] [place] [facility] Albumin_Pres unknown negative unknown _1753-3 unk nown unknown Clinic ence_in_Urine [facility] [place] [facility] Albumin_Glob unknown 1.5 unknown _1759-0 unkno wn unknown Clinic ulin_Mass_Rat Primary io_in_Serum_o Care & r_Plasma [facility] [place] [facility] Alkaline_pho unknown 59 unknown U/L _1783-0 unkno wn unknown Clinic sphatase_Enzy Primary matic_activit Care & y_volume_in_B Ancillary lood Services [place] [facility] creatinine_s unknown 1.1 unknown mg/dL _18 unknow n unknown Clinic loi [facility] [place] [facility] Anion_gap_4_ unknown 9.0 unknown _1863-0 unkno wn unknown Clinic in_Serum_or_P Primary lasma [facility] [place] [facility] Aspartate_am unknown 31 unknown U/L _1919- unkno wn unknown Clinic inotransferas Primary e_Enzymatic_a Care & ctivity_volum Ancillary e_in_Serum_or Services _Plasma [place] [facility] Bilirubin.to unknown 2.5 unknown mg/dL _1974- unkno wn unknown Clinic tal_Mass_volu Primary me_in_Serum_o Care & r_Plasma [facility] [place] [facility] albumin_seru unknown 4.0 unknown g/dL _2 unknow n unknown Clinic m [facility] [place] [facility] Calcium_Mole unknown 9.3 unknown mg/dL _2000-06 unkno wn unknown Clinic s_volume_in_S Primary erum_or_Plasm Care & a [facility] [place] [facility] carbon_dioxi unknown 28 unknown mmol/ _2027- unkno wn unknown Clinic de_serum_tota L Primary l [facility] [place] [facility] Chloride_Mol unknown 104 unknown mmol/ _2074-0 unkno wn unknown Clinic es_volume_in_ L Primary Serum_or_Plas Care & ma [facility]illary [facility] [place] [facility] Creatinine_M unknown 1.1 unknown mg/dL _2160-0 unkno wn unknown Clinic ass_volume_in Primary _Serum_or_Pla Care & sma [facility] [place] [facility] Globulin_Mas unknown 2.7 unknown _2336-6 unkno wn unknown Clinic s_volume_in_S Primary loi [facility] [place] [facility] Glucose_Mass unknown 167 unknown mg/dL _2345-7 unkno wn unknown Clinic _volume_in_Se Primary rum_or_Plasma [facility] [place] [facility] neutrophil_c unknown 5.6 10 unknown _2418 unknow n unknown Clinic ount_blood 3/UL [facility] [place] [facility] lymphocyte_c unknown 1.5 10 unknown _2420 unknow n unknown Clinic ount_blood 3/UL [facility] [place] [facility] monocyte_cou unknown 1.1 10 unknown _2422 unknow n unknown Clinic nt_blood 3/UL [facility] [place] [facility] basophil_cou unknown 0.0 10 unknown _2427 unknow n unknown Clinic nt_blood 3/UL [facility] [place] [facility] urine_color unknown yellow unknown _2751 unknown unknown Clinic [facility] [place] [facility] mean_platele unknown 11.4 unknown fL _2784 unknow n unknown Clinic t_volume [facility] [place] [facility] anion_gap_se unknown 9.0 unknown _279 unknow n unknown Clinic rum [facility] [place] [facility] eosinophil_c unknown 0.1 10 unknown _285 unknow n unknown Clinic ount_blood 3/UL [facility] [place] [facility] Protein_Mass unknown 6.7 unknown g/dL _2885-2 unkno wn unknown Clinic _volume_in_Se Primary rum_or_Plasma [facility] [place] [facility] Sodium_Moles unknown 141 unknown mmol/ _2951-2 unkno wn unknown Clinic _volume_in_Se L Primary rum_or_Plasma [facility] [place] [facility] alkaline_pho unknown 59 unknown U/L _3 unknow n unknown Clinic sphatase_seru Primary m [facility] [place] [facility] globulin_ser unknown 2.7 unknown _3059 unknow n unknown Clinic um [facility] [place] [facility] Urea_nitroge unknown 28 unknown mg/dL _3094-0 unkno wn unknown Clinic n_Mass_volume Primary _in_Serum_or_ Care & Plasma [facility] [place] [facility] mean_corpusc unknown 103.6 unknown fL _315 unknow n unknown Clinic ular_volume_R Primary BC [facility] [place] [facility] bilirubin_ur unknown negative unknown _319 unkn own unknown Clinic ine [facility] [place] [facility] ketones_urin unknown negative unknown _322 unkn own unknown Clinic e_by_test_str Primary ip [facility] [place] [facility] nitrite_urin unknown negative unknown _323 unkn own unknown Clinic e_semiquantit Primary ative [facility] & [facility] [place] [facility] pH_urine_sem unknown 6 unknown _324 unknow n unknown Clinic iquantitative [facility] [place] [facility] specific_gra unknown 1.030 unknown _325 unknow n unknown Clinic vity_urine [facility] [place] [facility] urobilinogen unknown negative unknown _326 unkn own unknown Clinic _urine_semiqu Primary antitative_di Care & pstick_ Ancillary [facility] [place] [facility] leukocyte_es unknown negative unknown _327 unkn own unknown Clinic terase_urine_ Primary by_dipstick [facility] [place] [facility] appearance_u unknown clear unknown _328 unknow n unknown Clinic rine [facility] [place] [facility] potassium_bl unknown 4.2 unknown meq/L _3483 unknow n unknown Clinic ood [facility] [place] [facility] blood_glucos unknown 167 unknown mg/dL _3565 unknow n unknown Clinic e [facility] [place] [facility] protein_tota unknown 6.7 unknown g/dL _36 unknow n unknown Clinic l_serum [facility] [place] [facility] aspartate_am unknown 31 unknown U/L _39 unknow n unknown Clinic inotransferas Primary e_SGOT_serum [facility] [place] [facility] carbon_dioxi unknown 28 unknown mmol/ _3962 unknow n unknown Clinic de_serum_tota L Primary l [facility] [place] [facility] alanine_amin unknown 44 unknown U/L _40 unknow n unknown Clinic otransferase_ Primary SGPT_serum [facility] [place] [facility] bilirubin_se unknown 2.5 unknown mg/dL _43 unknow n unknown Clinic rum_total [facility] [place] [facility] Hematocrit_V unknown 43.6 unknown % _4544-3 unkno wn unknown Clinic olume_Fractio Primary n_of_Blood_by Care & _Automated_co Ancillary unt Services [place] [facility] urinalysis_r unknown Clean unknown _47 unknow n unknown Clinic outine Catch [facility] [place] [facility] Glomerular_fi unknown 63 unknown mL/mi _48642- unkno wn unknown Clinic ltration_rate n 3 Primary _1.73_sq_M.pr Care & edicted_among Ancillary _non-blacks_V Services olume_Rate_Ar [place] ea_in_Serum_P lasma_or_Bloo d_by_Creatini ne-based_form ula_MDRD_ [facility] culture_stat unknown No unknown _51015 unknow n unknown Clinic us [facility] [place] [facility] Appearance_o unknown clear unknown _5767-9 unkno wn unknown Clinic f_Urine [facility] [place] [facility] Bilirubin.to unknown negative unknown _5770-3 unk nown unknown Clinic tal_Presence_ Primary in_Urine_by_T Care & est_strip [facility] [place] [facility] Color_of_Uri unknown yellow unknown _5778-6 unkno wn unknown Clinic ne [facility] [place] [facility] Glucose_Mass unknown negative unknown _5792-7 unk nown unknown Clinic _volume_in_Ur Primary ine_by_Test_s Care & trip [facility]illary [facility] [place] [facility] Ketones_Mass unknown negative unknown _5797-6 unk nown unknown Clinic _volume_in_Ur Primary ine_by_Test_s Care & trip [facility] [place] [facility] Leukocyte_es unknown negative unknown _5799-2 unk nown unknown Clinic terase_Presen Primary ce_in_Urine_b Care & y_Test_strip [facility] [place] [facility] Nitrite_Pres unknown negative unknown _5802-4 unk nown unknown Clinic ence_in_Urine Primary _by_Test_stri Care & p [facility] [place] [facility] pH_of_Urine_ unknown 6 unknown _5803-2 unkno wn unknown Clinic by_Test_strip [facility] [place] [facility] Specific_gra unknown 1.030 unknown _5811-5 unkno wn unknown Clinic vity_of_Urine Primary _by_Test_stri Care & p [facility] [place] [facility] Urobilinogen unknown negative unknown _5818-0 unk nown unknown Clinic _Presence_in_ Primary Urine_by_Test Care & _strip [facility]illary [facility] [place] [facility] potassium_bl unknown 4.2 unknown meq/L _6298-4 unkno wn unknown Clinic ood [facility] [place] [facility] hematocrit_b unknown 43.6 unknown % _64 unknow n unknown Clinic lood [facility] [place] [facility] hemoglobin_b unknown 13.7 unknown g/dL _65 unknow n unknown Clinic lood [facility] [place] [facility] platelet_cou unknown 237 10 unknown _66 unknow n unknown Clinic nt 3/UL [facility] [place] [facility] Glomerular_F unknown 63 unknown mL/mi _66455 unknow n unknown Clinic iltration_rat n Primary e [facility] [place] [facility] Leukocytes_v unknown 8.4 X10 unknown _6690-2 unkn own unknown Clinic olume_in_Bloo 3/UL Primary d_by_Automate Care & d_count Ancillary Services [place] [facility] erythrocyte_ unknown 4.21 10 unknown _67 unkno wn unknown Clinic RBC_count 6/UL [facility] [place] [facility] leukocyte_co unknown 8.4 X10 unknown _68 unkno wn unknown Clinic unt_blood 3/UL [facility] [place] [facility] Basophils_vo unknown 0.0 10 unknown _705-4 unknow n unknown Clinic lume_in_Blood 3/UL Primary _by_Manual_co Care & unt [facility]illary [facility] [place] [facility] eosinophil_c unknown 0.1 10 unknown _712-0 unknow n unknown Clinic ount_blood 3/UL [facility] [place] [facility] Hemoglobin_M unknown 13.7 unknown g/dL _718-7 unknow n unknown Clinic ass_volume_in Primary _Blood Care & [facility]illary [facility] [place] [facility] lymphocyte_c unknown 1.5 10 unknown _732-8 unknow n unknown Clinic ount_blood 3/UL [facility] [place] [facility] monocyte_cou unknown 1.1 10 unknown _743-5 unknow n unknown Clinic nt_blood 3/UL [facility] [place] [facility] neutrophil_c unknown 5.6 10 unknown _752-6 unknow n unknown Clinic ount_blood 3/UL [facility] [place] [facility] Platelet_mea unknown 11.4 unknown fL _776-5 unknow n unknown Clinic n_volume_Enti Primary tic_volume_in Care & _Blood_by_Ree Ancillary s-Ceci Services [place] [facility] Platelets_vo unknown 237 10 unknown _777-3 unknow n unknown Clinic lume_in_Blood 3/UL Primary _by_Automated Care & _count Ancillary [facility] [place] [facility] MCH_Entitic_ unknown 32.5 unknown pg _785-6 unknow n unknown Clinic mass_by_Autom Primary ated_count Care & Ancillary Services [place] [facility] MCV_Entitic_ unknown 103.6 unknown fL _787-2 unknow n unknown Clinic volume_by_Aut Primary omated_count Care & [facility]illary Services [place] [facility] Erythrocyte_ unknown 15.0 unknown % _788-0 unknow n unknown Clinic distribution_ Primary width_Ratio_b Care & y_Automated_c Ancillary ount Services [place] [facility] Erythrocytes unknown 4.21 10 unknown _789-8 unkno wn unknown Clinic _volume_in_Bl 6/UL Primary ood_by_Automa Care & ted_count Ancillary Services [place] [facility] urea_nitroge unknown 28 unknown mg/dL _9 unknow n unknown Clinic n_blood [facility] [place] [facility] TSH unknown 0.90895 unknown m[iU] _90820 unknown un known Clinic /mL [facility] [place] [facility] THYROID_STIM unknown 0.64223 unknown m[iU] rTSH unkno wn unknown Clinic ULATING_HORMO /mL Primary NE Care & [facility] [facility] ALBUMIN_GLOB unknown 1.5 unknown AGRATIO unkno wn unknown Clinic ULIN_RATIO [facility] [place] [facility] T unknown 4.0 unknown g/dL ALB unknown unk nown Clinic [facility] [place] [facility] T unknown 59 unknown U/L ALK_PHO unknown un known Clinic S [facility] [place] [facility] ALKALINE_PHO unknown 59 unknown U/L ALP unknow n unknown Clinic SPHATASE [facility] [place] [facility] ALT_ALANINE_ unknown 44 unknown U/L ALT unknow n unknown Clinic AMINOTRANSFER Primary ASE [facility] [place] [facility] T unknown 44 unknown U/L ALT_SGP unknown un known Clinic T_ [facility] [place] [facility] T unknown 31 unknown U/L AST unknown unk nown Clinic [facility] [place] [facility] T unknown 1.5 unknown A_G_RAT unknown un known Clinic IO [facility] [place] [facility] T unknown 0.0 10 unknown BASO_AU unknown un known Clinic 3/UL TO_ [facility] [place] [facility] BASOPHILS_AU unknown 0.0 10 unknown BA_ unknow n unknown Clinic TO_ 3/UL [facility] [place] [facility] BILIRUBIN_TO unknown 2.5 unknown mg/dL BILIT unknow n unknown Clinic GIANNA [facility] [place] [facility] T unknown 28 unknown mg/dL BUN unknown [facility] [place] [facility] T unknown 9.3 unknown mg/dL CA unknown [facility] [place] [facility] T unknown 104 unknown [facility] [place] [facility] T unknown 28 unknown mmol/ CO2 unknown [facility] L [facility] [place] [facility] T unknown 1.1 unknown mg/dL CREAT unknown [facility] [place] [facility] T unknown 0.1 10 unknown EOS_AUT unknown un known Clinic 3/UL O_ [facility] [place] [facility] EOSINOPHILS_ unknown 0.1 10 unknown EO_ unknow n unknown Clinic AUTO_ 3/UL [facility] [place] [facility] T unknown 9.0 unknown GAP unknown [facility] [place] [facility] GFR_-_MDRD unknown 63 unknown mL/mi GFR unknown unknown Clinic n [facility] [place] [facility] T unknown 63 unknown mL/mi GFR_-_M unknown un known Clinic n DRD [facility] [place] [facility] T unknown 2.7 unknown GLOB unknown [facility] [place] [facility] T unknown 167 unknown mg/dL GLU unknown [facility] [place] [facility] T unknown 43.6 unknown % HCT unknown [facility] [place] [facility] T unknown 13.7 unknown g/dL HGB unknown [facility] [place] [facility] T unknown 4.2 unknown meq/L K unknown [facility] [place] [facility] T unknown 1.5 10 unknown LYMPH_A unknown un known Clinic 3/UL UTO_ [facility] [place] [facility] LYMPHOCYTES_ unknown 1.5 10 unknown LY_ unknow n unknown Clinic AUTO_ 3/UL [facility] [place] [facility] T unknown 32.5 unknown pg MCH unknown [facility] [place] [facility] T unknown 31.4 unknown g/dL MCHC unknown [facility] [place] [facility] T unknown 103.6 unknown fL MCV unknown [facility] [place] [facility] T unknown 1.1 10 unknown MONO_AU unknown un known Clinic 3/UL TO_ [facility] [place] [facility] MONOCYTES_AU unknown 1.1 10 unknown MO_ unknow n unknown Clinic TO_ 3/UL [facility] [place] [facility] T unknown 11.4 unknown fL MPV unknown [facility] [place] [facility] T unknown 141 unknown mmol/ NA unknown [facility] L [facility] [place] [facility] T unknown 5.6 10 unknown NEUT_AU unknown un known Clinic 3/UL TO_ [facility] [place] [facility] NEUTROPHILS_ unknown 5.6 10 unknown NE_ unknow n unknown Clinic AUTO_ 3/UL [facility] [place] [facility] T unknown 237 10 unknown PLT unknown [facility] 3/UL [facility] [place] [facility] T unknown 6.7 unknown g/dL PRO_TOT unknown un known Clinic AL [facility] [place] [facility] T unknown 4.21 10 unknown RBC unknown un known Clinic 6/UL [facility] [place] [facility] T unknown 15.0 unknown % RDW unknown [facility] [place] [facility] T unknown 2.5 unknown mg/dL TOTAL_B unknown un known Clinic AMARILYS [facility] [place] [facility] T unknown 0.82404 unknown m[iU] TSH unknown un known Clinic /mL [facility] [place] [facility] T unknown 8.4 X10 unknown WBC unknown un known Clinic 3/UL [facility] [place] [facility] DIPSTICK_URI unknown 5067 unknown _101400 unkno wn unknown Clinic NE_STRIP_LOT_ Primary NUMBER [facility] red_blood_ce unknown 15.0 unknown % _1030 unknow n unknown Clinic ll_distributi Primary on_width [facility] mean_corpusc unknown 32.5 unknown pg _1031 unknow n unknown Clinic ular_hemoglob Primary in_RBC [facility] calcium_seru unknown 9.3 unknown mg/dL _11 unknow n unknown Clinic m [facility] Urine_HCG_QC unknown Yes unknown _[id number] unkno wn unknown Clinic _Result_CLIA_ Primary Waived_ [facility] Thyrotropin_ unknown 0.15141 unknown m[iU] _11579- unkn own unknown Clinic Units_volume_ /mL 0 Primary in_Serum_or_P Care & lasma_by_Dete Ancillary ction_limit_l Services t_0.05_mIU_L [facility] protein_urin unknown negative unknown _118 unkn own unknown Clinic e_semiquantit Primary ative_dipstic Care & k_ [facility] glucose_urin unknown negative unknown _123 unkn own unknown Clinic e_semiquantit Primary ative [facility] & [facility] chloride_ser unknown 104 unknown mmol/ _13 unknow n unknown Clinic um L [facility] Erythrocytes unknown negative unknown _13945- unk nown unknown Clinic _area_in_Urin 1 Primary e_sediment_by Care & _Microscopy_h Ancillary igh_power_fie Services ld [facility] albumin_glob unknown 1.5 unknown _146 unknow n unknown Clinic ulin_ratio_se Primary rum [facility] sodium_serum unknown 141 unknown mmol/ _159 unknow n unknown Clinic L [facility] RBC_urine_di unknown negative unknown _170000 unk nown unknown Clinic pstick 5 Primary [facility] mean_corpusc unknown 31.4 unknown g/dL _17029 unknow n unknown Clinic ular_hemoglob Primary in_concentrat Care & ion_rbc [facility] Alanine_amin unknown 44 unknown U/L _1742-6 unkno wn unknown Clinic otransferase_ Primary Enzymatic_act Care & ivity_volume_ Ancillary in_Serum_or_P Services lasma [facility] Albumin_Mass unknown 4.0 unknown g/dL _1751-7 unkno wn unknown Clinic _volume_in_Se Primary rum_or_Plasma [facility] Albumin_Pres unknown negative unknown _1752- unk nown unknown Clinic ence_in_Urine [facility] Albumin_Glob unknown 1.5 unknown _1758- unkno wn unknown Clinic ulin_Mass_Rat Primary io_in_Serum_o Care & r_Plasma [facility] Alkaline_pho unknown 59 unknown U/L _1782- unkno wn unknown Clinic sphatase_Enzy Primary matic_activit Care & y_volume_in_B Ancillary lood Services [facility] creatinine_s unknown 1.1 unknown mg/dL _18 unknow n unknown Clinic loi [facility] Anion_gap_4_ unknown 9.0 unknown _1862- unkno wn unknown Clinic in_Serum_or_P Primary lasma [facility] Aspartate_am unknown 31 unknown U/L _1920-06 unkno wn unknown Clinic inotransferas Primary e_Enzymatic_a Care & ctivity_volum Ancillary e_in_Serum_or Services _Plasma [facility] Bilirubin.to unknown 2.5 unknown mg/dL _1974-12 unkno wn unknown Clinic tal_Mass_volu Primary me_in_Serum_o Care & r_Plasma [facility] albumin_seru unknown 4.0 unknown g/dL _2 unknow n unknown Clinic m [facility] Calcium_Mole unknown 9.3 unknown mg/dL _2000-06 unkno wn unknown Clinic s_volume_in_S Primary erum_or_Plasm Care & a [facility] carbon_dioxi unknown 28 unknown mmol/ _2028-07 unkno wn unknown Clinic de_serum_tota L Primary l [facility] Chloride_Mol unknown 104 unknown mmol/ _ unkno wn unknown Clinic es_volume_in_ L Primary Serum_or_Plas Care & ma [facility]illary [facility] Creatinine_M unknown 1.1 unknown mg/dL _ unkno wn unknown Clinic ass_volume_in Primary _Serum_or_Pla Care & sma [facility] Globulin_Mas unknown 2.7 unknown _2336-6 unkno wn unknown Clinic s_volume_in_S Primary loi [facility] Glucose_Mass unknown 167 unknown mg/dL _2345-7 unkno wn unknown Clinic _volume_in_Se Primary rum_or_Plasma [facility] neutrophil_c unknown 5.6 10 unknown _2418 unknow n unknown Clinic ount_blood 3/UL [facility] lymphocyte_c unknown 1.5 10 unknown _2420 unknow n unknown Clinic ount_blood 3/UL [facility] monocyte_cou unknown 1.1 10 unknown _2422 unknow n unknown Clinic nt_blood 3/UL [facility] basophil_cou unknown 0.0 10 unknown _2427 unknow n unknown Clinic nt_blood 3/UL [facility] urine_color unknown yellow unknown _2751 unknown unknown Clinic Primary [facility] mean_platele unknown 11.4 unknown fL _2784 unknow n unknown Clinic t_volume [facility] anion_gap_se unknown 9.0 unknown _279 unknow n unknown Clinic rum [facility] eosinophil_c unknown 0.1 10 unknown _285 unknow n unknown Clinic ount_blood 3/UL [facility] Protein_Mass unknown 6.7 unknown g/dL _2885-2 unkno wn unknown Clinic _volume_in_Se Primary rum_or_Plasma [facility] Sodium_Moles unknown 141 unknown mmol/ _2951-2 unkno wn unknown Clinic _volume_in_Se L Primary rum_or_Plasma [facility] alkaline_pho unknown 59 unknown U/L _3 unknow n unknown Clinic sphatase_seru Primary m [facility] globulin_ser unknown 2.7 unknown _3059 unknow n unknown Clinic um [facility] Urea_nitroge unknown 28 unknown mg/dL _3094-0 unkno wn unknown Clinic n_Mass_volume Primary _in_Serum_or_ Care & Plasma [facility] mean_corpusc unknown 103.6 unknown fL _315 unknow n unknown Clinic ular_volume_R Primary BC [facility] bilirubin_ur unknown negative unknown _319 unkn own unknown Clinic ine [facility] ketones_urin unknown negative unknown _322 unkn own unknown Clinic e_by_test_str Primary ip [facility] nitrite_urin unknown negative unknown _323 unkn own unknown Clinic e_semiquantit Primary ative [facility] pH_urine_sem unknown 6 unknown _324 unknow n unknown Clinic iquantitative [facility] specific_gra unknown 1.030 unknown _325 unknow n unknown Clinic vity_urine [facility] urobilinogen unknown negative unknown _326 unkn own unknown Clinic _urine_semiqu Primary antitative_di Care & pstick_ [facility]illary [facility] leukocyte_es unknown negative unknown _327 unkn own unknown Clinic terase_urine_ Primary by_dipstick [facility] appearance_u unknown clear unknown _328 unknow n unknown Clinic rine [facility] potassium_bl unknown 4.2 unknown meq/L _3483 unknow n unknown Clinic ood [facility] blood_glucos unknown 167 unknown mg/dL _3565 unknow n unknown Clinic e [facility] protein_tota unknown 6.7 unknown g/dL _36 unknow n unknown Clinic l_serum [facility] aspartate_am unknown 31 unknown U/L _39 unknow n unknown Clinic inotransferas Primary e_SGOT_serum [facility] carbon_dioxi unknown 28 unknown mmol/ _3962 unknow n unknown Clinic de_serum_tota L Primary l [facility] alanine_amin unknown 44 unknown U/L _40 unknow n unknown Clinic otransferase_ Primary SGPT_serum [facility] bilirubin_se unknown 2.5 unknown mg/dL _43 unknow n unknown Clinic rum_total [facility] Hematocrit_V unknown 43.6 unknown % _4544-3 unkno wn unknown Clinic olume_Fractio Primary n_of_Blood_by Care & _Automated_co Ancillary unt Services [facility] urinalysis_r unknown Clean unknown _47 unknow n unknown Clinic outine Catch [facility] Glomerular_fi unknown 63 unknown mL/mi _48642- unkno wn unknown Clinic ltration_rate n 3 Primary _1.73_sq_M.pr Care & edicted_among Ancillary _non-blacks_V Services olume_Rate_Ar [place] ea_in_Serum_P lasma_or_Bloo d_by_Creatini ne-based_form ula_MDRD_ [facility]In culture_stat unknown No unknown _51015 unknow n unknown Clinic us [facility] Appearance_o unknown clear unknown _5767-9 unkno wn unknown Clinic f_Urine [facility] Bilirubin.to unknown negative unknown _5770-3 unk nown unknown Clinic tal_Presence_ Primary in_Urine_by_T Care & est_strip [facility] Color_of_Uri unknown yellow unknown _5778-6 unkno wn unknown Clinic ne [facility] Glucose_Mass unknown negative unknown _5792-7 unk nown unknown Clinic _volume_in_Ur Primary ine_by_Test_s Care & trip [facility] Ketones_Mass unknown negative unknown _5797-6 unk nown unknown Clinic _volume_in_Ur Primary ine_by_Test_s Care & trip [facility] Leukocyte_es unknown negative unknown _5799-2 unk nown unknown Clinic terase_Presen Primary ce_in_Urine_b Care & y_Test_strip [facility] Nitrite_Pres unknown negative unknown _5802-4 unk nown unknown Clinic ence_in_Urine Primary _by_Test_stri Care & p [facility] pH_of_Urine_ unknown 6 unknown _5803-2 unkno wn unknown Clinic by_Test_strip [facility] Specific_gra unknown 1.030 unknown _5811-5 unkno wn unknown Clinic vity_of_Urine Primary _by_Test_stri Care & p [facility] Urobilinogen unknown negative unknown _5818-0 unk nown unknown Clinic _Presence_in_ Primary Urine_by_Test Care & _strip [facility] potassium_bl unknown 4.2 unknown meq/L _6298-4 unkno wn unknown Clinic ood [facility] hematocrit_b unknown 43.6 unknown % _64 unknow n unknown Clinic lood [facility] hemoglobin_b unknown 13.7 unknown g/dL _65 unknow n unknown Clinic lood [facility] platelet_cou unknown 237 10 unknown _66 unknow n unknown Clinic nt 3/UL [facility] Glomerular_F unknown 63 unknown mL/mi _66455 unknow n unknown Clinic iltration_rat n Primary e [facility] Leukocytes_v unknown 8.4 X10 unknown _6690-2 unkn own unknown Clinic olume_in_Bloo 3/UL Primary d_by_Automate Care & d_count [facility]illary [facility] erythrocyte_ unknown 4.21 10 unknown _67 unkno wn unknown Clinic RBC_count 6/UL [facility] leukocyte_co unknown 8.4 X10 unknown _68 unkno wn unknown Clinic unt_blood 3/UL [facility] Basophils_vo unknown 0.0 10 unknown _705-4 unknow n unknown Clinic lume_in_Blood 3/UL Primary _by_Manual_co Care & unt [facility]illary [facility] eosinophil_c unknown 0.1 10 unknown _712-0 unknow n unknown Clinic ount_blood 3/UL [facility] Hemoglobin_M unknown 13.7 unknown g/dL _718-7 unknow n unknown Clinic ass_volume_in Primary _Blood [facility] lymphocyte_c unknown 1.5 10 unknown _732-8 unknow n unknown Clinic ount_blood 3/UL [facility] monocyte_cou unknown 1.1 10 unknown _743-5 unknow n unknown Clinic nt_blood 3/UL [facility] neutrophil_c unknown 5.6 10 unknown _752-6 unknow n unknown Clinic ount_blood 3/UL [facility] Platelet_mea unknown 11.4 unknown fL _776-5 unknow n unknown Clinic n_volume_Enti Primary tic_volume_in Care & _Blood_by_Ree Ancillary s-Ceci Services [facility] Platelets_vo unknown 237 10 unknown _777-3 unknow n unknown Clinic lume_in_Blood 3/UL Primary _by_Automated Care & _count [facility] MCH_Entitic_ unknown 32.5 unknown pg _785-6 unknow n unknown Clinic mass_by_Autom Primary ated_count [facility] & [facility] MCV_Entitic_ unknown 103.6 unknown fL _787-2 unknow n unknown Clinic volume_by_Aut Primary omated_count [facility] Erythrocyte_ unknown 15.0 unknown % _788-0 unknow n unknown Clinic distribution_ Primary width_Ratio_b Care & y_Automated_c Ancillary ount Services [facility] Erythrocytes unknown 4.21 10 unknown _789-8 unkno wn unknown Clinic _volume_in_Bl 6/UL Primary ood_by_Automa Care & ted_count [facility]illary [facility] urea_nitroge unknown 28 unknown mg/dL _9 unknow n unknown Clinic n_blood [facility] TSH unknown 0.55551 unknown m[iU] _90820 unknown un known Clinic /mL [facility] THYROID_STIM unknown 0.45224 unknown m[iU] rTSH unkno wn unknown Clinic ULATING_HORMO /mL Primary NE [facility] Vital Signs date measurement value source 20210228 BMI 31.68 kg/m2 [id number] BP_diastolic 81 mm[Hg] 35224298 BP_systolic 131 mm[Hg] [id number] heart_rate 90 /min 20210228 height_metric 177.8 cm 20210228 height_standard 70 in [id number] respiration_rate 20 /min 20210228 temperature_metric 36.28 C 20210228 temperature_standard 97.3 F 20210228 weight_metric 99.79 kg 20210228 weight_standard 220 lb 20210228 BMI 31.68 kg/m2 20210228 BP_diastolic 81 mm[Hg] 20210228 BP_systolic 131 mm[Hg] 20210228 heart_rate 90 /min 20210228 height_metric 177.8 cm 20210228 height_standard 70 in 20210228 respiration_rate 20 /min 20210228 temperature_metric 36.28 C 20210228 temperature_standard 97.3 F 20210228 weight_metric 99.79 kg 20210228 weight_standard 220 lb Social History date description facility [id number]
[2021-03-04 12:06] LABS: BASOPHILS % (AUTO) 0.5 %; EOSINOPHILS # (AUTO) 0.1 10^3/uL (0.0-0.7); EOSINOPHILS % (AUTO) 1.2 %; HGB - HEMOGLOBIN 14.7 g/dL (14.0-18.0); LYMPHOCYTES # (AUTO) 1.1 10^3/uL (1.5-3.5); LYMPHOCYTES % (AUTO) 14.5 %; MEAN CORPUSCULAR HEMOGLOBIN 33.3 pg (27.0-31.0); MEAN CORPUSCULAR HGB CONC 32.7 g/dL (32.0-36.0); MEAN CORPUSCULAR VOLUME 101.8 fL (80.0-94.0); MEAN PLATELET VOLUME 10.5 fL (7.4-11.4); MONOCYTES # (AUTO) 0.9 10^3/uL (0.0-1.0); NEUTROPHILS # (AUTO) 5.5 10^3/uL (1.5-6.6); NEUTROPHILS % (AUTO) 71.5 %; PLT - PLATELET COUNT 253 10^3/uL (130-450); RED BLOOD COUNT 4.42 10^6/uL (4.70-6.10); WHITE BLOOD COUNT 7.7 x10^3/uL (4.8-10.8)
--- OUTSIDE RECORDS SUMMARY | 2021-03-04 12:06 | EXTERNAL MEDICAL SUMMARY RPT | Continuity of Care Document ---
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 [facility] ty 20482553 Congestive heart failure [facility] ty [id number] Congestive heart failure, unspecified [facility] 11616031 Malignant neoplasm of pancreas, part W [facility] ty 53958258 Malignant neoplasm of pancreas, [facility] ty [id number] Heart failure, unspecified [facility] ty 13526079 Malignant tumor of pancreas [facility] ty Medications date description facility [id number] APIXABAN [facility] [place] [id number] SPIRONOLACTONE-HCTZ [facility] [place] [id number] FUROSEMIDE [facility] [place] [id number] ATORVASTATIN CALCIUM [facility] [place] [id number] BISOPROLOL FUMARATE [facility] [place] [id number] DIGOXIN [facility] [place] [id number] DIGOXIN [facility] [place] [id number] APIXABAN [facility] [place] [id number] SPIRONOLACTONE-HCTZ [facility] [place] [id number] ATORVASTATIN CALCIUM [facility] [place] [id number] FUROSEMIDE [facility] [place] [id number] BISOPROLOL FUMARATE [facility] [place] [id number] APIXABAN [facility] [place] [id number] SPIRONOLACTONE-HCTZ [facility] [place] [id number] FUROSEMIDE [facility] [place] [id number] ATORVASTATIN CALCIUM [facility] [place] [id number] BISOPROLOL FUMARATE [facility] [place] [id number] DIGOXIN [facility] [place] [id number] DIGOXIN [facility] [place] [id number] APIXABAN [facility] [place] [id number] SPIRONOLACTONE-HCTZ [facility] [place] [id number] ATORVASTATIN CALCIUM [facility] [place] [id number] FUROSEMIDE [facility] [place] [id number] BISOPROLOL FUMARATE [facility] [place] Procedures date description facility [id number] TSH WITH REFLEX TO FT4 [facility] [place] date description facility [id number] COMPREHENSIVE METABOLIC PANEL [facility] [place] date description facility [id number] POC URINALYSIS DIP [facility] [place] date description facility [id number] CBC W/Diff/Plt [facility] [place] date description facility [id number] TSH WITH REFLEX TO FT4 [facility] [place] date description facility [id number] COMPREHENSIVE METABOLIC PANEL [facility] [place] date description facility [id number] POC URINALYSIS DIP [facility] [place] date description facility [id number] CBC W/Diff/Plt [facility] [place] Results test status date ordered by attending specimen cami e ALBUMIN_GLOBULIN_RATIO unknown [id number] unknown unknown unknown T unknown [id number] unknown unknown unknown T unknown 00253344 unknown unknown unknown ALKALINE_PHOSPHATASE unknown 77270175 unknown unknown un known ALT_ALANINE_AMINOTRANS unknown 78284387 unknown unknown unknown FERASE T unknown 04933613 unknown unknown unknown T unknown 72543544 unknown unknown unknown T unknown 17281414 unknown unknown unknown T unknown 52357397 unknown unknown unknown BASOPHILS_AUTO_ unknown 85367513 unknown unknown unknown BILIRUBIN_TOTAL unknown 24786925 unknown unknown unknown T unknown 34131308 unknown unknown unknown T unknown 25699423 unknown unknown unknown T unknown 72913840 unknown unknown unknown T unknown 21576535 unknown unknown unknown T unknown 72411802 unknown unknown unknown T unknown 52064985 unknown unknown unknown EOSINOPHILS_AUTO_ unknown 09152053 unknown unknown unkno wn T unknown 66875179 unknown unknown unknown GFR_-_MDRD unknown 42435297 unknown unknown unknown T unknown 26538951 unknown unknown unknown T unknown 28683758 unknown unknown unknown T unknown 89191274 unknown unknown unknown T unknown 46297438 unknown unknown unknown T unknown 74674966 unknown unknown unknown T unknown 77230639 unknown unknown unknown T unknown 13679056 unknown unknown unknown LYMPHOCYTES_AUTO_ unknown 10695025 unknown unknown unkno wn T unknown 04843315 unknown unknown unknown T unknown 29660993 unknown unknown unknown T unknown 34317849 unknown unknown unknown T unknown 90256815 unknown unknown unknown MONOCYTES_AUTO_ unknown 17792050 unknown unknown unknown T unknown 77730658 unknown unknown unknown T unknown 55534032 unknown unknown unknown T unknown 12669542 unknown unknown unknown NEUTROPHILS_AUTO_ unknown 17461496 unknown unknown unkno wn T unknown 57547445 unknown unknown unknown T unknown 90183818 unknown unknown unknown T unknown 38932749 unknown unknown unknown T unknown 78765701 unknown unknown unknown T unknown 19212185 unknown unknown unknown T unknown 72151662 unknown unknown unknown T unknown 11860633 unknown unknown unknown DIPSTICK_URINE_STRIP_L unknown 15055416 unknown unknown unknown OT_NUMBER red_blood_cell_distrib unknown 04984365 unknown unknown unknown ution_width mean_corpuscular_hemog unknown 43634897 unknown unknown unknown lobin_RBC calcium_serum unknown 74818738 unknown unknown unknown Urine_HCG_QC_Result_CL unknown 24135333 unknown unknown unknown IA_Waived_ Thyrotropin_Units_volu unknown 14843803 unknown unknown unknown me_in_Serum_or_Plasma_b y_Detection_limit_lt_0. 05_mIU_L protein_urine_semiquan unknown 69248202 unknown unknown unknown titative_dipstick_ glucose_urine_semiquan unknown 64319581 unknown unknown unknown titative chloride_serum unknown 70389290 unknown unknown unknown Erythrocytes_area_in_U unknown 80308825 unknown unknown unknown rine_sediment_by_Micros copy_high_power_field albumin_globulin_ratio unknown 67916989 unknown unknown unknown _serum sodium_serum unknown 66544576 unknown unknown unknown RBC_urine_dipstick unknown 17669398 unknown unknown unkn own mean_corpuscular_hemog unknown 53338491 unknown unknown unknown lobin_concentration_rbc Alanine_aminotransfera unknown 52988869 unknown unknown unknown se_Enzymatic_activity_v olume_in_Serum_or_Plasm a Albumin_Mass_volume_in unknown 87267827 unknown unknown unknown _Serum_or_Plasma Albumin_Presence_in_Ur unknown 35828527 unknown unknown unknown ine Albumin_Globulin_Mass_ unknown 26103680 unknown unknown unknown Ratio_in_Serum_or_Plasm a Alkaline_phosphatase_E unknown 91325953 unknown unknown unknown nzymatic_activity_volum e_in_Blood creatinine_serum unknown 48358544 unknown unknown unknow n Anion_gap_4_in_Serum_o unknown 89373779 unknown unknown unknown r_Plasma Aspartate_aminotransfe unknown 80989744 unknown unknown unknown rase_Enzymatic_activity _volume_in_Serum_or_Pla sma Bilirubin.total_Mass_v unknown 23686651 unknown unknown unknown olume_in_Serum_or_Plasm a albumin_serum unknown 45709195 unknown unknown unknown Calcium_Moles_volume_i unknown 50430495 unknown unknown unknown n_Serum_or_Plasma carbon_dioxide_serum_t unknown 18406582 unknown unknown unknown otal Chloride_Moles_volume_ unknown 79639954 unknown unknown unknown in_Serum_or_Plasma Creatinine_Mass_volume unknown 41954103 unknown unknown unknown _in_Serum_or_Plasma Globulin_Mass_volume_i unknown 32415039 unknown unknown unknown n_Serum Glucose_Mass_volume_in unknown 59082669 unknown unknown unknown _Serum_or_Plasma neutrophil_count_blood unknown 80888161 unknown unknown unknown lymphocyte_count_blood unknown 82458105 unknown unknown unknown monocyte_count_blood unknown 60866203 unknown unknown un known basophil_count_blood unknown 80351609 unknown unknown un known urine_color unknown 54354845 unknown unknown unknown mean_platelet_volume unknown 31651105 unknown unknown un known anion_gap_serum unknown 30579329 unknown unknown unknown eosinophil_count_blood unknown 80593051 unknown unknown unknown Protein_Mass_volume_in unknown 98437665 unknown unknown unknown _Serum_or_Plasma Sodium_Moles_volume_in unknown 54508096 unknown unknown unknown _Serum_or_Plasma alkaline_phosphatase_s unknown 39432930 unknown unknown unknown loi globulin_serum unknown 54701092 unknown unknown unknown Urea_nitrogen_Mass_vol unknown 59902110 unknown unknown unknown ume_in_Serum_or_Plasma mean_corpuscular_volum unknown 60856707 unknown unknown unknown e_RBC bilirubin_urine unknown 27907818 unknown unknown unknown ketones_urine_by_test_ unknown 62634339 unknown unknown unknown strip nitrite_urine_semiquan unknown 92024572 unknown unknown unknown titative pH_urine_semiquantitat unknown 81331173 unknown unknown unknown bimal specific_gravity_urine unknown 06967700 unknown unknown unknown urobilinogen_urine_sem unknown 93484564 unknown unknown unknown iquantitative_dipstick_ leukocyte_esterase_uri unknown 23479078 unknown unknown unknown ne_by_dipstick appearance_urine unknown 27418285 unknown unknown unknow n potassium_blood unknown 09604163 unknown unknown unknown blood_glucose unknown 14179791 unknown unknown unknown protein_total_serum unknown 58231634 unknown unknown unk nown aspartate_aminotransfe unknown 87537829 unknown unknown unknown rase_SGOT_serum carbon_dioxide_serum_t unknown 78447273 unknown unknown unknown otal alanine_aminotransfera unknown 84543760 unknown unknown unknown se_SGPT_serum bilirubin_serum_total unknown 68083311 unknown unknown u nknown Hematocrit_Volume_Frac unknown 91751576 unknown unknown unknown tion_of_Blood_by_Automa ted_count urinalysis_routine unknown 77429226 unknown unknown unkn own Glomerular_filtration_ unknown 87737519 unknown unknown unknown rate_1.73_sq_M.predicte d_among_non-blacks_Volu me_Rate_Area_in_Serum_P lasma_or_Blood_by_Creat inine-based_formula_MDR D_ culture_status unknown 63830266 unknown unknown unknown Appearance_of_Urine unknown 00738571 unknown unknown unk nown Bilirubin.total_Presen unknown 01539197 unknown unknown unknown ce_in_Urine_by_Test_str ip Color_of_Urine unknown 85262440 unknown unknown unknown Glucose_Mass_volume_in unknown 94290044 unknown unknown unknown _Urine_by_Test_strip Ketones_Mass_volume_in unknown 45457878 unknown unknown unknown _Urine_by_Test_strip Leukocyte_esterase_Pre unknown 79453763 unknown unknown unknown sence_in_Urine_by_Test_ strip Nitrite_Presence_in_Ur unknown 69931770 unknown unknown unknown ine_by_Test_strip pH_of_Urine_by_Test_st unknown 14434425 unknown unknown unknown rip Specific_gravity_of_Ur unknown 03646571 unknown unknown unknown ine_by_Test_strip Urobilinogen_Presence_ unknown 40662589 unknown unknown unknown in_Urine_by_Test_strip potassium_blood unknown 80620131 unknown unknown unknown hematocrit_blood unknown 75482380 unknown unknown unknow n hemoglobin_blood unknown 25900303 unknown unknown unknow n platelet_count unknown 87211832 unknown unknown unknown Glomerular_Filtration_ unknown 20310904 unknown unknown unknown rate Leukocytes_volume_in_B unknown 04914806 unknown unknown unknown lood_by_Automated_count erythrocyte_RBC_count unknown 83488199 unknown unknown u nknown leukocyte_count_blood unknown 18576990 unknown unknown u nknown Basophils_volume_in_Bl unknown 96753410 unknown unknown unknown ood_by_Manual_count eosinophil_count_blood unknown 51245173 unknown unknown unknown Hemoglobin_Mass_volume unknown 00785577 unknown unknown unknown _in_Blood lymphocyte_count_blood unknown 49151388 unknown unknown unknown monocyte_count_blood unknown 13654197 unknown unknown un known neutrophil_count_blood unknown 54466394 unknown unknown unknown Platelet_mean_volume_E unknown 94623693 unknown unknown unknown ntitic_volume_in_Blood_ by_Rees-Ceci Platelets_volume_in_Bl unknown 56391271 unknown unknown unknown ood_by_Automated_count MCH_Entitic_mass_by_Au unknown 75127031 unknown unknown unknown tomated_count MCV_Entitic_volume_by_ unknown 43786537 unknown unknown unknown Automated_count Erythrocyte_distributi unknown 07263451 unknown unknown unknown on_width_Ratio_by_Autom ated_count Erythrocytes_volume_in unknown 12049653 unknown unknown unknown _Blood_by_Automated_cou nt urea_nitrogen_blood unknown 71658415 unknown unknown unk nown TSH unknown 42235200 unknown unknown unknown THYROID_STIMULATING_HO unknown 61538631 unknown unknown unknown RMONE ALBUMIN_GLOBULIN_RATIO unknown 36732873 unknown unknown unknown T unknown 20737457 unknown unknown unknown T unknown 86161468 unknown unknown unknown ALKALINE_PHOSPHATASE unknown 48464854 unknown unknown un known ALT_ALANINE_AMINOTRANS unknown 62463487 unknown unknown unknown FERASE T unknown 84688035 unknown unknown unknown T unknown 24092794 unknown unknown unknown T unknown 31859939 unknown unknown unknown T unknown 40432263 unknown unknown unknown BASOPHILS_AUTO_ unknown 03382477 unknown unknown unknown BILIRUBIN_TOTAL unknown 33050471 unknown unknown unknown T unknown 04370001 unknown unknown unknown T unknown 35117711 unknown unknown unknown T unknown 26506749 unknown unknown unknown T unknown 51352291 unknown unknown unknown T unknown 87297583 unknown unknown unknown T unknown 41328005 unknown unknown unknown EOSINOPHILS_AUTO_ unknown 00759246 unknown unknown unkno wn T unknown 25641710 unknown unknown unknown GFR_-_MDRD unknown 56273493 unknown unknown unknown T unknown 33183999 unknown unknown unknown T unknown 10966349 unknown unknown unknown T unknown 46014000 unknown unknown unknown T unknown 71181456 unknown unknown unknown T unknown 52025120 unknown unknown unknown T unknown 39961298 unknown unknown unknown T unknown 33972966 unknown unknown unknown LYMPHOCYTES_AUTO_ unknown 52865955 unknown unknown unkno wn T unknown 08050558 unknown unknown unknown T unknown 01321698 unknown unknown unknown T unknown 18372041 unknown unknown unknown T unknown 47738905 unknown unknown unknown MONOCYTES_AUTO_ unknown 63998833 unknown unknown unknown T unknown 50222640 unknown unknown unknown T unknown 66444130 unknown unknown unknown T unknown 13963943 unknown unknown unknown NEUTROPHILS_AUTO_ unknown 02589096 unknown unknown unkno wn T unknown 74517295 unknown unknown unknown T unknown 25031003 unknown unknown unknown T unknown 25687843 unknown unknown unknown T unknown 13783137 unknown unknown unknown T unknown 62429524 unknown unknown unknown T unknown 83064335 unknown unknown unknown T unknown 69133121 unknown unknown unknown DIPSTICK_URINE_STRIP_L unknown 03644882 unknown unknown unknown OT_NUMBER red_blood_cell_distrib unknown 59500279 unknown unknown unknown ution_width mean_corpuscular_hemog unknown 79366162 unknown unknown unknown lobin_RBC calcium_serum unknown 65581570 unknown unknown unknown Urine_HCG_QC_Result_CL unknown 03159662 unknown unknown unknown IA_Waived_ Thyrotropin_Units_volu unknown 16136168 unknown unknown unknown me_in_Serum_or_Plasma_b y_Detection_limit_lt_0. 05_mIU_L protein_urine_semiquan unknown 53844044 unknown unknown unknown titative_dipstick_ glucose_urine_semiquan unknown 83376680 unknown unknown unknown titative chloride_serum unknown 93699376 unknown unknown unknown Erythrocytes_area_in_U unknown 59917623 unknown unknown unknown rine_sediment_by_Micros copy_high_power_field albumin_globulin_ratio unknown 19945596 unknown unknown unknown _serum sodium_serum unknown 43935251 unknown unknown unknown RBC_urine_dipstick unknown 27206610 unknown unknown unkn own mean_corpuscular_hemog unknown 54681934 unknown unknown unknown lobin_concentration_rbc Alanine_aminotransfera unknown 91522921 unknown unknown unknown se_Enzymatic_activity_v olume_in_Serum_or_Plasm a Albumin_Mass_volume_in unknown 96678978 unknown unknown unknown _Serum_or_Plasma Albumin_Presence_in_Ur unknown 03988927 unknown unknown unknown ine Albumin_Globulin_Mass_ unknown 87376206 unknown unknown unknown Ratio_in_Serum_or_Plasm a Alkaline_phosphatase_E unknown 64985755 unknown unknown unknown nzymatic_activity_volum e_in_Blood creatinine_serum unknown 98360171 unknown unknown unknow n Anion_gap_4_in_Serum_o unknown 54841262 unknown unknown unknown r_Plasma Aspartate_aminotransfe unknown 51523423 unknown unknown unknown rase_Enzymatic_activity _volume_in_Serum_or_Pla sma Bilirubin.total_Mass_v unknown 85800648 unknown unknown unknown olume_in_Serum_or_Plasm a albumin_serum unknown 29202981 unknown unknown unknown Calcium_Moles_volume_i unknown 49270599 unknown unknown unknown n_Serum_or_Plasma carbon_dioxide_serum_t unknown 03980308 unknown unknown unknown otal Chloride_Moles_volume_ unknown 76843333 unknown unknown unknown in_Serum_or_Plasma Creatinine_Mass_volume unknown 60744769 unknown unknown unknown _in_Serum_or_Plasma Globulin_Mass_volume_i unknown 59640052 unknown unknown unknown n_Serum Glucose_Mass_volume_in unknown 87050975 unknown unknown unknown _Serum_or_Plasma neutrophil_count_blood unknown 99871603 unknown unknown unknown lymphocyte_count_blood unknown 68233617 unknown unknown unknown monocyte_count_blood unknown 32117777 unknown unknown un known basophil_count_blood unknown 87407114 unknown unknown un known urine_color unknown 50583317 unknown unknown unknown mean_platelet_volume unknown 39467491 unknown unknown un known anion_gap_serum unknown 41684321 unknown unknown unknown eosinophil_count_blood unknown 41684323 unknown unknown unknown Protein_Mass_volume_in unknown 94743978 unknown unknown unknown _Serum_or_Plasma Sodium_Moles_volume_in unknown 62058537 unknown unknown unknown _Serum_or_Plasma alkaline_phosphatase_s unknown 14036150 unknown unknown unknown loi globulin_serum unknown 75124365 unknown unknown unknown Urea_nitrogen_Mass_vol unknown 71994284 unknown unknown unknown ume_in_Serum_or_Plasma mean_corpuscular_volum unknown 19618784 unknown unknown unknown e_RBC bilirubin_urine unknown 33007389 unknown unknown unknown ketones_urine_by_test_ unknown 61134522 unknown unknown unknown strip nitrite_urine_semiquan unknown 02600303 unknown unknown unknown titative pH_urine_semiquantitat unknown 10666091 unknown unknown unknown bimal specific_gravity_urine unknown 05465584 unknown unknown unknown urobilinogen_urine_sem unknown 25003563 unknown unknown unknown iquantitative_dipstick_ leukocyte_esterase_uri unknown 38765348 unknown unknown unknown ne_by_dipstick appearance_urine unknown 24752221 unknown unknown unknow n potassium_blood unknown 65906781 unknown unknown unknown blood_glucose unknown 64871182 unknown unknown unknown protein_total_serum unknown 24182982 unknown unknown unk nown aspartate_aminotransfe unknown 25067228 unknown unknown unknown rase_SGOT_serum carbon_dioxide_serum_t unknown 83551496 unknown unknown unknown otal alanine_aminotransfera unknown 69633748 unknown unknown unknown se_SGPT_serum bilirubin_serum_total unknown 14720489 unknown unknown u nknown Hematocrit_Volume_Frac unknown 94578982 unknown unknown unknown tion_of_Blood_by_Automa ted_count urinalysis_routine unknown 83584598 unknown unknown unkn own Glomerular_filtration_ unknown 11008900 unknown unknown unknown rate_1.73_sq_M.predicte d_among_non-blacks_Volu me_Rate_Area_in_Serum_P lasma_or_Blood_by_Creat inine-based_formula_MDR D_ culture_status unknown 61057198 unknown unknown unknown Appearance_of_Urine unknown 55495163 unknown unknown unk nown Bilirubin.total_Presen unknown 16994307 unknown unknown unknown ce_in_Urine_by_Test_str ip Color_of_Urine unknown 74006406 unknown unknown unknown Glucose_Mass_volume_in unknown 68903001 unknown unknown unknown _Urine_by_Test_strip Ketones_Mass_volume_in unknown 58421635 unknown unknown unknown _Urine_by_Test_strip Leukocyte_esterase_Pre unknown 84540842 unknown unknown unknown sence_in_Urine_by_Test_ strip Nitrite_Presence_in_Ur unknown 23402227 unknown unknown unknown ine_by_Test_strip pH_of_Urine_by_Test_st unknown 47280087 unknown unknown unknown rip Specific_gravity_of_Ur unknown 15750999 unknown unknown unknown ine_by_Test_strip Urobilinogen_Presence_ unknown 23380216 unknown unknown unknown in_Urine_by_Test_strip potassium_blood unknown 36907153 unknown unknown unknown hematocrit_blood unknown 56892512 unknown unknown unknow n hemoglobin_blood unknown 78384187 unknown unknown unknow n platelet_count unknown 79816405 unknown unknown unknown Glomerular_Filtration_ unknown 63758481 unknown unknown unknown rate Leukocytes_volume_in_B unknown 72197690 unknown unknown unknown lood_by_Automated_count erythrocyte_RBC_count unknown 14009232 unknown unknown u nknown leukocyte_count_blood unknown 13056082 unknown unknown u nknown Basophils_volume_in_Bl unknown 39565982 unknown unknown unknown ood_by_Manual_count eosinophil_count_blood unknown 62528512 unknown unknown unknown Hemoglobin_Mass_volume unknown 30890562 unknown unknown unknown _in_Blood lymphocyte_count_blood unknown 19628065 unknown unknown unknown monocyte_count_blood unknown 28504410 unknown unknown un known neutrophil_count_blood unknown 45707123 unknown unknown unknown Platelet_mean_volume_E unknown 89330256 unknown unknown unknown ntitic_volume_in_Blood_ by_Rees-Ceci Platelets_volume_in_Bl unknown 26850070 unknown unknown unknown ood_by_Automated_count MCH_Entitic_mass_by_Au unknown 94037276 unknown unknown unknown tomated_count MCV_Entitic_volume_by_ unknown 34837515 unknown unknown unknown Automated_count Erythrocyte_distributi unknown 92005925 unknown unknown unknown on_width_Ratio_by_Autom ated_count Erythrocytes_volume_in unknown 41188718 unknown unknown unknown _Blood_by_Automated_cou nt urea_nitrogen_blood unknown 70468466 unknown unknown unk nown TSH unknown 20210228 [...] Walk-In T unknown 9.0 unknown GAP unknown [facility] [place] [facility] GFR_-_MDRD unknown 63 unknown mL/mi GFR unknown unknown Clinic n [facility] [place] Walk[facility]In T unknown 63 unknown mL/mi GFR_-_M unknown un known Clinic n DRD [facility] [place] Walk[facility]In T unknown 2.7 unknown GLOB unknown [facility] [place] [facility] T unknown 167 unknown mg/dL GLU unknown [facility] [place] [facility] T unknown 43.6 unknown % HCT unknown [facility] [place] [facility] T unknown 13.7 unknown g/dL HGB unknown [facility] [place] Walk[facility]In T unknown 4.2 unknown meq/L K unknown [facility] [place] Walk[facility]In T unknown 1.5 10 unknown LYMPH_A unknown un known Clinic 3/UL UTO_ [facility] [facility] LYMPHOCYTES_ unknown 1.5 10 unknown LY_ unknow n unknown Clinic AUTO_ 3/UL [facility] T unknown 32.5 unknown pg MCH unknown [facility] T unknown 31.4 unknown g/dL MCHC unknown [facility] T unknown 103.6 unknown fL MCV unknown [facility] T unknown 1.1 10 unknown MONO_AU unknown un known Clinic 3/UL TO_ [facility] MONOCYTES_AU unknown 1.1 10 unknown MO_ unknow n unknown Clinic TO_ 3/UL [facility] T unknown 11.4 unknown fL MPV unknown [facility] T unknown 141 unknown mmol/ NA unknown [facility] L [facility] [...] unknown 15.0 unknown % RDW unknown unk [facility] T unknown 2.5 unknown mg/dL TOTAL_B unknown un known Clinic AMARILYS [facility] T unknown [phone] unknown m[iU] TSH unknown un known Clinic [...] & Ancillary [facility] Thyrotropin_ unknown 0.87757 unknown m[iU] _[id number]- unkn own unknown Clinic [...] Primary d_by_Automate Care & d_count [facility] erythrocyte_ unknown 4.21 10 unknown _67 [...] & [facility] TSH unknown 0.67293 unknown m[iU] _[id number] unknown un known Clinic /mL [facility] THYROID_STIM unknown 0.11422 unknown m[iU] rTSH unkno wn unknown Clinic [...] T unknown 28 unknown mg/dL BUN unknown [facility] T unknown 9.3 unknown mg/dL CA unknown [facility] T unknown 104 unknown [facility] T unknown 28 unknown mmol/ CO2 unknown [facility] L [facility] T unknown 1.1 unknown mg/dL CREAT unknown [facility] T unknown 0.1 10 unknown EOS_AUT unknown un known Clinic 3/UL O_ [facility] EOSINOPHILS_ unknown 0.1 10 unknown EO_ unknow n unknown Clinic AUTO_ 3/UL [facility] T unknown 9.0 unknown GAP unknown [facility] GFR_-_MDRD unknown 63 unknown mL/mi GFR unknown unknown Clinic n [facility] T unknown 63 unknown mL/mi GFR_-_M unknown un known Clinic n DRD [facility] T unknown 2.7 unknown GLOB unknown [facility] T unknown 167 unknown mg/dL GLU unknown [facility] T unknown 43.6 unknown % HCT unknown [facility] T unknown 13.7 unknown g/dL HGB unknown [facility] T unknown 4.2 unknown meq/L K unknown [facility] T unknown 1.5 10 unknown LYMPH_A unknown un known Clinic 3/UL UTO_ [facility] LYMPHOCYTES_ unknown 1.5 10 unknown LY_ unknow n unknown Clinic AUTO_ 3/UL [facility] T unknown 32.5 unknown pg MCH unknown [facility] T unknown 31.4 unknown g/dL MCHC unknown [facility] T unknown 103.6 unknown fL MCV unknown [facility] T unknown 1.1 10 unknown MONO_AU unknown un known Clinic 3/UL TO_ [facility] MONOCYTES_AU unknown 1.1 10 unknown MO_ unknow n unknown Clinic TO_ 3/UL [facility] T unknown 11.4 unknown fL MPV unknown [facility] T unknown 141 unknown mmol/ NA unknown [facility] L [facility] T unknown 5.6 10 unknown NEUT_AU unknown un known Clinic 3/UL TO_ [facility] NEUTROPHILS_ unknown 5.6 10 unknown NE_ unknow n unknown Clinic AUTO_ 3/UL [facility] T unknown 237 10 unknown PLT unknown [facility] 3/UL [facility] T unknown 6.7 unknown g/dL PRO_TOT unknown un known Clinic AL [facility] T unknown 4.21 10 unknown RBC unknown un known Clinic 6/UL [facility] T unknown 15.0 unknown % RDW unknown [facility] T unknown 2.5 unknown mg/dL TOTAL_B unknown un known Clinic AMARILYS [facility] T unknown 0.91056 unknown m[iU] TSH unknown un known Clinic [...] & Ancillary Services [facility] Thyrotropin_ unknown 0.66913 unknown m[iU] _[id number]- unkn own unknown Clinic [...] ular_volume_R [facility] bilirubin_ur unknown negative unknown _319 unkn [...] & Ancillary Services [facility] TSH unknown 0.77908 unknown m[iU] _[id number] unknown un known Clinic /mL [facility] THYROID_STIM unknown 0.50803 unknown m[iU] rTSH unkno wn unknown Clinic ULATING_HORMO /mL [facility] Vital Signs date measurement value source 20210228 BMI 31.68 kg/m2 [id number] BP_diastolic 81 mm[Hg] [id number] BP_systolic 131 mm[Hg] [id number] heart_rate 90 /min [id number] height_metric 177.8 cm [id number] height_standard 70 in [id number] respiration_rate 20 /min [id number] temperature_metric 36.28 C [...] 220 lb Social History date description facility [id number]
[2021-03-04 12:09] LABS: VBG PCO2 57.4 mmHg (41-51)
[2021-03-04 12:10] LABS: VBG BASE EXCESS 3.8 mmol/L (-2 - +2); VBG TOTAL CO2 32.7 mmol/L (24-29)
[2021-03-04 12:11] LABS: VBG PO2 < 19.0 mmHg (25-47)
--- NOTE | 2021-03-04 12:22 | XRAY Report ---
PROCEDURE: Chest 1 View X-Ray INDICATIONS: Chest Pain TECHNIQUE: One view of the chest was acquired. COMPARISON: 02/28/2021 FINDINGS: Surgical changes and devices: None. Lungs and pleura: There is pulmonary vascular congestion. Mild blunting of bilateral costophrenic an gles are seen suggestive of trace bilateral pleural effusion. Mild pulmonary edema is also noted. No definite focal infiltrate. No pneumothorax. Mediastinum: Mediastinal contours appear normal. Heart size is normal. Bones and chest wall: No suspicious bony lesions. Overlying soft tissues appear unremarkable. IMPRESSION: Mild congestion and pulmonary edema. Trace bilateral pleural effusion. No definite focal infiltrate. No gross pneumothorax. Reviewed by: Gilberto Baird MD on 03/04/2021 12:20 PM PDT Approved by: Gilberto Baird MD on 03/04/2021 12:20 PM PDT Station ID: [id number]
[2021-03-04 12:23] LABS: ALBUMIN 4.1 g/dL (3.2-5.5); ALBUMIN/GLOBULIN RATIO 1.4 (1.0-2.2); BILIRUBIN,TOTAL 2.6 mg/dL (0.2-1.0); CALCIUM 9.2 mg/dL (8.5-10.3); CREATININE 1.2 mg/dL (0.6-1.2); POTASSIUM 3.4 mmol/L (3.5-5.0)
[2021-03-04 13:59] LABS: BILIRUBIN,URINE NEGATIVE (NEGATIVE); GLUCOSE, URINE (UA) NEGATIVE (NEGATIVE); KETONES,URINE (UA) NEGATIVE (NEGATIVE); LEUKOCYTE ESTERASE, URINE NEGATIVE (NEGATIVE); NITRITE,URINE NEGATIVE (NEGATIVE); OCCULT BLOOD,URINE MODERATE (NEGATIVE); PROTEIN,URINE NEGATIVE (NEGATIVE); UROBILINOGEN,URINE 0.2 (NORMAL) E.U./dL (NORMAL)
[2021-03-04 14:01] LABS: CLARITY,URINE CLEAR (CLEAR)
[2021-03-04 14:06] LABS: BACTERIA,URINE Rare /HPF (None Seen); SQUAMOUS EPITHELIAL CELL,UR RARE Squamous (<= Few); WBC,URINE 0-3 /HPF (0-3)
[2021-03-04] MEDS ORDERED: FUROSEMIDE 40 MG/4 ML VIAL IVP STA (14:39)
--- NOTE | 2021-03-04 14:48 | ED Physician Documentation ---
History of Present Illness - Stated complaint Stated Complaint: SOA - Chief complaint Chief Complaint: Cardiac - History obtained from History obtained from: Patient - Additonal information Additional information: 89yM with pmh severe childhood asthma, JOSEPH, and CHF p/w sob over past couple weeks, progressively worsening. also with dry cough. denies chest pain. He has gained about 12 lb recently with edema. He was seen in [place] on sunday and found to have mild CHF exacerbation, and Raissa Guerrero prescibed lasix and he has been urinating more. However, patient has been having worsening shortness of breath since then. Cough is about the same since sunday. He is tired and spends all his time on the couch this week. According to Rupali: Patient has history of small precancerous spot on pancreas. Pancreas, gallbladder and spleen were removed about 3-[address] [facility] in [place]. He gets annual checks. He also has had 2 episodes of gross hematuria in the past but they never figured out why. Review of Systems Ten Systems: 10 systems reviewed and negative Constitutional: denies: Fever, Chills Cardiac: denies: Chest pain / pressure Respiratory: reports: Dyspnea, Cough (chronic nonproductive cough) GI: denies: Nausea, Vomiting : reports: Hematuria. denies: Dysuria, Frequency PD PAST MEDICAL HISTORY - Past Medical History Cardiovascular: Congestive heart failure, Hypertension, High cholesterol, Atrial fibrillation Respiratory: None Endocrine/Autoimmune: None GI: GERD : None HEENT: Chronic hearing loss Psych: None Musculoskeletal: None, Chronic back pain Derm: Other - Past Surgical History Past Surgical History: Yes Cardiovascular: Other - Present Medications Home Medications: Ambulatory Orders Medication Instructions Recorded Confirmed Atorvastatin [Lipitor] 80 mg ORAL DAILY 04/16/15 03/04/21 Bisoprolol Fumarate [Zebeta] 2.5 mg ORAL DAILY 04/16/15 03/04/21 Multivit-Min/Folic/Vit K/Lycop 1 tab ORAL DAILY 04/16/15 03/04/21 [One-A-Day Men's 50 Plus Tablet] Apixaban [Eliquis] 5 mg PO BID 11/29/16 03/04/21 Furosemide [Lasix] 40 mg PO DAILY 11/29/16 03/04/21 Digoxin [Lanoxin] 62.5 mcg PO DAILY 03/04/21 03/04/21 Furosemide [Lasix] 80 mg PO QDAC 30 Days #30 tablet 03/04/21 - Allergies Allergies/Adverse Reactions: Allergies Allergy/AdvReac Type Severity Reaction Status Date / Time hydrocodone Allergy Unknown Verified 03/04/21 12:36 morphine Allergy Unknown Verified 03/04/21 12:36 tamsulosin [From Flomax] Allergy Unknown Verified 03/04/21 12:36 tree nut Allergy Respiratory Verified 03/04/21 11:44 - Social History Does the pt smoke?: No Smoking Status: Never smoker Does the pt drink ETOH?: No Does the pt have substance abuse?: No - Immunizations Immunizations are current?: Yes - POLST Patient has POLST: Yes PD ED PE NORMAL - Vitals Vital signs reviewed: Yes - General General: Alert and oriented X 3, No acute distress, Well developed/nourished - HEENT HEENT: Atraumatic, PERRL, EOMI - Neck Neck: Supple, no meningeal sign - Cardiac Cardiac: Other (borderline tachycardic rate, irregular rhythm) - Respiratory Respiratory: Other (BL dependent crackles) - Abdomen Abdomen: Non tender, Non distended - Male Male : Deferred - Rectal Rectal: Deferred - Derm Derm: Normal color, Warm and dry - Extremities Extremities: No deformity, Other (BL LE edema) - Neuro Neuro: Alert and oriented X 3 - Psych Psych: Normal mood, Normal affect Results - Vitals Vitals: Vital Signs - 24 hr 03/04/21 03/04/21 03/04/21 11:40 13:44 14:47 Temperature 36.4 C L 36.6 C Heart Rate 99 83 87 Respiratory 18 25 H 20 Rate Blood Pressure 121/67 124/93 H 120/90 H O2 Saturation 95 96 96 03/04/21 03/04/21 16:00 16:01 Temperature Heart Rate 104 H Respiratory 26 H 22 Rate Blood Pressure O2 Saturation 86 L 94 Oxygen O2 Source Room air - Labs Labs: Laboratory Tests 03/04/21 03/04/21 03/04/21 11:52 11:55 11:55 WBC 7.7 RBC 4.42 L Hgb 14.7 Hct 45.0 MCV 101.8 H MCH 33.3 H MCHC 32.7 RDW 15.0 Plt Count 253 MPV 10.5 Neut # (Auto) 5.5 Lymph # (Auto) 1.1 L Teller # (Auto) 0.9 Eos # (Auto) 0.1 Baso # (Auto) 0.0 Absolute Nucleated RBC 0.00 Nucleated RBC % 0.0 PT INR APTT D-Dimer VBG pH VBG pCO2 VBG pO2 VBG HCO3 VBG Total CO2 VBG O2 Saturation VBG Base Excess Sodium 141 Potassium 3.4 L Chloride 102 Carbon Dioxide 28 Anion Gap 11.0 BUN 28 H Creatinine 1.2 Estimated GFR (MDRD) 57 L Glucose 144 H Calcium 9.2 Total Bilirubin 2.6 H AST 27 ALT 40 Alkaline Phosphatase 64 Troponin I High Sens B-Natriuretic Peptide Total Protein 7.0 Albumin 4.1 Globulin 2.9 Albumin/Globulin Ratio 1.4 Lipase 33 Urine Color YELLOW Urine Clarity CLEAR Urine pH 7.0 Ur Specific Straughn 1.010 Urine Protein NEGATIVE Urine Glucose (UA) NEGATIVE Urine Ketones NEGATIVE Urine Occult Blood MODERATE H Urine Nitrite NEGATIVE Urine Bilirubin NEGATIVE Urine Urobilinogen 0.2 (NORMAL) Ur Leukocyte Esterase NEGATIVE Urine RBC 11-25 H Urine WBC 0-3 Ur Squamous Epith Cells RARE Squamous Urine Bacteria Rare Urine Culture Comments NOT INDICATED 03/04/21 03/04/21 03/04/21 11:55 11:55 11:55 WBC RBC Hgb Hct MCV MCH MCHC RDW Plt Count MPV Neut # (Auto) Lymph # (Auto) Teller # (Auto) Eos # (Auto) Baso # (Auto) Absolute Nucleated RBC Nucleated RBC % PT INR APTT D-Dimer VBG pH 7.350 VBG pCO2 57.4 H VBG pO2 < 19.0 L VBG HCO3 31.0 H VBG Total CO2 32.7 H VBG O2 Saturation 22.0 L VBG Base Excess 3.8 H Sodium Potassium Chloride Carbon Dioxide Anion Gap BUN Creatinine Estimated GFR (MDRD) Glucose Calcium Total Bilirubin AST ALT Alkaline Phosphatase Troponin I High Sens 15.5 B-Natriuretic Peptide 546 H Total Protein Albumin Globulin Albumin/Globulin Ratio Lipase Urine Color Urine Clarity Urine pH Ur Specific Straughn Urine Protein Urine Glucose (UA) Urine Ketones Urine Occult Blood Urine Nitrite Urine Bilirubin Urine Urobilinogen Ur Leukocyte Esterase Urine RBC Urine WBC Ur Squamous Epith Cells Urine Bacteria Urine Culture Comments 03/04/21 03/04/21 13:57 14:52 WBC RBC Hgb Hct MCV MCH MCHC RDW Plt Count MPV Neut # (Auto) Lymph # (Auto) Teller # (Auto) Eos # (Auto) Baso # (Auto) Absolute Nucleated RBC Nucleated RBC % PT 18.4 H INR 1.7 H APTT 31.1 D-Dimer 239.2 VBG pH VBG pCO2 VBG pO2 VBG HCO3 VBG Total CO2 VBG O2 Saturation VBG Base Excess Sodium Potassium Chloride Carbon Dioxide Anion Gap BUN Creatinine Estimated GFR (MDRD) Glucose Calcium Total Bilirubin AST ALT Alkaline Phosphatase Troponin I High Sens 13.6 B-Natriuretic Peptide Total Protein Albumin Globulin Albumin/Globulin Ratio Lipase Urine Color Urine Clarity Urine pH Ur Specific Straughn Urine Protein Urine Glucose (UA) Urine Ketones Urine Occult Blood Urine Nitrite Urine Bilirubin Urine Urobilinogen Ur Leukocyte Esterase Urine RBC Urine WBC Ur Squamous Epith Cells Urine Bacteria Urine Culture Comments PD MEDICAL DECISION MAKING - ED course ED course: d/w Dr. Goyal for possible admission given patient desat to 93% on ambulation with evidence of mild CHF exacerbation on xray. She recommends doubling his lasix and trial outpatient. d/w patient and who are agreeable. Plan to f/u with urology in regards to chronic hematuria. ANJUM Rubio was helping patient with a urinal and he desatted to 76% on RA while attempting to stand to urinate. He also was tachycardic to 125 in afib upon standing suddenly. d/w Dr. Goyal who will take him for admission. Departure - Departure Disposition: ED Place in Observation Clinical Impression: CHF exacerbation, Hematuria Condition: Good Follow-Up: Winnie Aden MD [Physician No Access] - Prescriptions: Furosemide [Lasix] 80 mg PO QDAC 30 Days #30 tablet
[2021-03-04 15:15] LABS: D-DIMER 239.2 ng/mL (200.0-255.0); INR 1.7 (0.8-1.2); PT - PROTHROMBIN TIME 18.4 secs (9.9-12.6)
[2021-03-04 15:22] LABS: PARTIAL THROMBOPLASTIN TIME 31.1 secs (24.9-33.3)
[2021-03-04] MEDS ORDERED: SODIUM CHLORIDE FLUSH 0.9% 10 ML SYRINGE IVP PRN (16:01)
[2021-03-04] MEDS ORDERED: ACETAMINOPHEN 325 MG TABLET PO PRN (16:01)
[2021-03-04] MEDS ORDERED: ONDANSETRON 4 MG/2 ML VIAL IVP PRN (16:01)
[2021-03-04] MEDS ORDERED: POTASSIUM CHLORIDE 20 MEQ TABLET PO STA (16:07)
[2021-03-04 16:10] LABS: B. PARAPERTUSSIS- RESP PCR PAN NOT DETECTED; B. PERTUSSIS- RESP PCR PANEL NOT DETECTED; C. PNEUMONIAE- RESP PCR PANEL NOT DETECTED; CORONAVIRUS 229E-RESP PCR NOT DETECTED; CORONAVIRUS HKU1-RESP PCR NOT DETECTED; CORONAVIRUS NL63-RESP PCR NOT DETECTED; CORONAVIRUS OC43-RESP PCR NOT DETECTED; HUMAN METAPNEUMOVIRUS NOT DETECTED; INFLUENZA A- RESP PCR PANEL NOT DETECTED; INFLUENZA B - RESP PCR PANEL NOT DETECTED; M. PNEUMONIAE- RESP PCR PANEL NOT DETECTED; PARAINFLUENZA VIRUS 1 NOT DETECTED; PARAINFLUENZA VIRUS 2 NOT DETECTED; PARAINFLUENZA VIRUS 3 NOT DETECTED; PARAINFLUENZA VIRUS 4 NOT DETECTED; RHINOVIRUS/ENTEROVIRUS NOT DETECTED; RSV- RESP PCR PANEL NOT DETECTED; SARS-CoV-2 -RESP PCR PANEL NOT DETECTED
[2021-03-04] MEDS ORDERED: ALBUTEROL NEB 2.5 MG/3 ML INH PRN (16:10)
--- NOTE | 2021-03-04 16:16 | HISTORY & PHYSICAL EXAMINATION ---
Chief Complaint - Chief Complaint Chief Complaint: shortness of breath History of Present Illness - Admitted From Admitted From:: ER - History Obtained From Records Reviewed: [facility] History obtained from: pt and his Exam Limitations: no - History of Present Illness HPI Comment/Other: This is a 89yM with pmh significant of Congestive heart failure, Hypertension, High cholesterol, Atrial fibrillation, asthma, hx of pancreatic cancer with whipple procedure, who present ER complain of shortness of breath. pt report in past couple weeks, he feel progressively worsening for his shortness of breath. yesterday he feel much worse. He has gained about 12 lb recently. he was prescribed PO Lasix in [facility] 4 days but symptoms persistent. He report he continue Eliquis for afib. He also report he had Whipple procedure about 3 years ago when he was diagnosis of pancreatic cancer. He was annually checked by his oncologist, as far he knew he is cancer free. pt also report he had hematuria for about one year. So far he was scheduled to see urologist but he still did not see yet. He denies chest pain, fever, chilly. In routine laboratory test show patient had a BNP 546. In the ER, patient is afebrile, patient is hemodynamic stable. Discussed the care goal with patient, patient hope to have DNR. History - Past Medical History Cardiovascular: reports: Congestive heart failure, Hypertension, High cholesterol, Atrial fibrillation Respiratory: reports: None Endocrine/Autoimmune: reports: None GI: reports: GERD : reports: None HEENT: reports: Chronic hearing loss Psych: reports: None Musculoskeletal: reports: None, Chronic back pain Derm: reports: Other MRSA Hx?: No - Past Surgical History Cardiovascular: reports: Other - Family & Social History Family History: Mother: , Father: Family History Comment/Other: Patient report his father at age 59 from heart attack, her mother at age 95 from aging Social History Notes: Patient denies any history of cigarette smoking, alcohol or drug issue. He is living at [place], he had 3 children, 2 boys and 1 girl - POLST Patient has POLST: Yes Meds/Allgy - Home Medications Home Medications: Ambulatory Orders Medication Instructions Recorded Confirmed Atorvastatin [Lipitor] 80 mg ORAL DAILY 04/16/15 03/04/21 Bisoprolol Fumarate [Zebeta] 2.5 mg ORAL DAILY 04/16/15 03/04/21 Multivit-Min/Folic/Vit K/Lycop 1 tab ORAL DAILY 04/16/15 03/04/21 [One-A-Day Men's 50 Plus Tablet] Apixaban [Eliquis] 5 mg PO BID 11/29/16 03/04/21 Furosemide [Lasix] 40 mg PO DAILY 11/29/16 03/04/21 Digoxin [Lanoxin] 62.5 mcg PO DAILY 03/04/21 03/04/21 - Allergies Allergies/Adverse Reactions: Allergies Allergy/AdvReac Type Severity Reaction Status Date / Time hydrocodone Allergy Unknown Verified 03/04/21 12:36 morphine Allergy Unknown Verified 03/04/21 12:36 tamsulosin [From Flomax] Allergy Unknown Verified 03/04/21 12:36 tree nut Allergy Respiratory Verified 03/04/21 11:44 Review of Systems - Constitutional Constitutional: denies: Fever, Chills, Poor appetite, Diaphoresis - Eyes Eyes: denies: Pain, Field loss, Vision loss - Ears, Nose & Throat Ears, Nose & Throat: denies: Ear pain, Tinnitus, Nosebleeds, Bleeding gums - Cardiovascular Cariovascular: reports: Orthopnea. denies: Irregular heart rate, Palpitations, Chest pain, Lightheadedness, Syncope, Exertional dyspnea - Respiratory Respiratory: reports: SOB with exertion. denies: Cough, Sputum production, Wheezing, Hemoptysis, Orthopnea, SOB at rest - Gastrointestinal Gastrointestinal: denies: Abdominal pain, Constipation, Diarrhea, Rectal bleeding, Black stools, Bloody stools, Nausea, Vomiting - Genitourinary Genitourinary: reports: Hematuria. denies: Dysuria, Urgency, Incontinence - Musculoskeletal Musculoskeletal: denies: Muscle pain, Muscle aches, Limited range of motion - Integumentary Integumentary: denies: Rash, Lesions, Lumps - Neurological Neurological: denies: General weakness, Focal weakness, Headache, Dizziness, Numbness, Pre-existing deficit, Abnormal gait, Seizures, Incoordination, Slurred speech - Psychiatric Psychiatric: denies: Depression, Delusions - Endocrine Endocrine: denies: Polyuria, Polyphagia - Hematologic/Lymphatic Hematologic/Lymphatic: denies: Anemia, Blood clots Prior Level of Functionality: Patient is independently at home Exam - Vital Signs Vital Signs: Vital Signs x48h Temp Pulse Resp BP Pulse Ox 03/04/21 16:01 104 H 22 94 03/04/21 16:00 26 H 86 L 03/04/21 14:47 87 20 120/90 H 96 03/04/21 13:44 36.6 C 83 25 H 124/93 H 96 03/04/21 11:40 36.4 C L 99 18 121/67 95 - Physical Exam General Appearance: positive: No acute distress, Alert. negative: Lethargic Eyes Bilateral: positive: Normal inspection, PERRL, No lid inflammation ENT: positive: ENT inspection nml, No signs of dehydration. negative: Purulent nasal drainage Neck: positive: Nml inspection, Trachea midline. negative: Thyromegaly, Trache al deviation Respiratory: positive: Chest non-tender, No respiratory distress. negative: Wheezes, Rales Cardiovascular: positive: Regular rate & rhythm, Systolic murmur, Diastolic murmur. negative: Tachycardia, Bradycardia Peripheral Pulses: positive: 2+ Abdomen: positive: Non-tender, Nml bowel sounds, No distention. negative: Tenderness Back: positive: Nml inspection Skin: positive: Color nml, Warm, Dry. negative: Cyanosis Extremities: positive: Non-tender, Full ROM, Nml appearance, Pedal edema Neurologic/Psychiatric: positive: Oriented x3, Motor nml, Sensation nml, Mood/affect nml. negative: Weakness, Sensory loss, Facial droop, Slurred/abnml speech, Depressed mood/affect Sepsis Event Note (H) - Evaluation Current Stage of Sepsis: Ruled out Conclusion/Plan - Problem List (1) CHF exacerbation Conclusion/Plan: Patient reported he had history of CHF. He gained weight 12 pounds in couple weeks. He feel gradually shortness of breathing, and present hypoxia at 86% sats on room air and tachypnea at RR 26, and worsening on yesterday, and report orthopnea. ECHO, pt has hx of Murmur as well. IV of Lasix, fluid restrict, daily weight , I&O vital, lab and tele monitor pt (2) Shortness of breath Conclusion/Plan: he feel progressively worsening for his shortness of breath. yesterday he feel much worse. pt report he took eliquis for his afib. It seems more likely from acute on chronic heart failure cause his shortness of breath. CXR reveals mild congestion and pulmonary edema, trace of pleural effusion. pt also present hypoxia at 86% sats on room air and tachypnea at RR 26. continue Lasix, lab and tele monitor. (3) Hematuria Conclusion/Plan: pt report he had over year hematuria, unknown etiology as far. today pt present significant hematuria again. his HGB is 14.7. we will check US of retroperiteumia, hold home Eliquis, and H&H monitor. (4) Afib Conclusion/Plan: HR is stable, will continue bisoprolol, hold Eliquis now for pt's hematuria, continue tele monitor. (5) History of pancreatic cancer Conclusion/Plan: pt report he had Whipple procedure for his pancreatic cancer for three years ago. pt report he has been cancer free for three years, and he followup with his oncologist annually. pt has slight elevated Bili, will continue lab monitor. pt has hematuria, will followup with US of retroperiteumia. - Lab Results Fish Bones: 03/04/21 22:07 03/04/21 11:55 Core Measures - Anticipated LOS I expect patient to be DC'd or transferred within 96 hours.: Yes - DVT/VTE - Prophylaxis VTE/DVT Device ordered at admit?: Yes VTE/DVT Prophylaxis med ordered at admit?: Yes
--- OUTSIDE RECORDS SUMMARY | 2021-03-04 16:19 | EXTERNAL MEDICAL SUMMARY RPT | Continuity of Care Document ---
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 [facility] C ty [id number] Congestive heart failure [facility] C ty [id number] Congestive heart failure, unspecified [facility] C ty 01344400 Malignant neoplasm of pancreas, part W [facility] unspecified Ancillary Services C ty [id number] Malignant neoplasm of pancreas, [facility] unspecified Ancillary Services C ty [id number] Heart failure, unspecified [facility] C ty 96421855 Malignant tumor of pancreas [facility] C ty Medications date description facility [id number] APIXABAN [facility] [place] [id number] SPIRONOLACTONE-HCTZ [facility] [place] [id number] FUROSEMIDE [facility] [place] [id number] ATORVASTATIN CALCIUM [facility] [place] [id number] BISOPROLOL FUMARATE [facility] [place] [id number] DIGOXIN [facility] [place] [id number] DIGOXIN [facility] [place] [id number] APIX[facility]AN [facility] [place] [id number] SPIRONOLACTONE-HCTZ [facility] [place] [id number] ATORVASTATIN CALCIUM [facility] [place] [id number] FUROSEMIDE [facility] [place] [id number] BISOPROLOL FUMARATE [facility] [place] [id number] [facility]AN [facility] [place] [id number] SPIRONOLACTONE-HCTZ [facility] [place] [id number] FUROSEMIDE [facility] [place] [id number] ATORVASTATIN CALCIUM [facility] [place] [id number] BISOPROLOL FUMARATE [facility] [place] [id number] DIGOXIN [facility] [place] [id number] DIGOXIN [facility] [place] [id number] APIXABAN [facility] [place] [id number] SPIRONOLACTONE-HCTZ [facility] [place] [id number] ATORVASTATIN CALCIUM [facility] [place] [id number] FUROSEMIDE [facility] [place] [id number] BISOPROLOL FUMARATE [facility] [place] Procedures date description facility [id number] TSH WITH REFLEX TO FT4 [facility] [place] date description facility [id number] COMPREHENSIVE METABOLIC PANEL [facility] [place] date description facility [id number] POC URINALYSIS DIP [facility] [place] date description facility [id number] CBC W/Diff/Plt [facility] [place] date description facility [id number] TSH WITH REFLEX TO FT4 [facility] [place] date description facility [id number] COMPREHENSIVE METABOLIC PANEL [facility] [place] date description facility [id number] POC URINALYSIS DIP [facility] [place] date description facility [id number] CBC W/Diff/Plt [facility] [place] Results test status date ordered by attending specimen cami e ALBUMIN_GLOBULIN_RATIO unknown [id number] unknown unknown unknown T unknown 13030133 unknown unknown unknown T unknown 49125037 unknown unknown unknown ALKALINE_PHOSPHATASE unknown 32407182 unknown unknown un known ALT_ALANINE_AMINOTRANS unknown 95726430 unknown unknown unknown FERASE T unknown 60925079 unknown unknown unknown T unknown 36420617 unknown unknown unknown T unknown 34312196 unknown unknown unknown T unknown 98724032 unknown unknown unknown BASOPHILS_AUTO_ unknown 45123354 unknown unknown unknown BILIRUBIN_TOTAL unknown 10647393 unknown unknown unknown T unknown 48043489 unknown unknown unknown T unknown 63256302 unknown unknown unknown T unknown 19521767 unknown unknown unknown T unknown 76350047 unknown unknown unknown T unknown 42317990 unknown unknown unknown T unknown 22256385 unknown unknown unknown EOSINOPHILS_AUTO_ unknown 20175509 unknown unknown unkno wn T unknown 32654465 unknown unknown unknown GFR_-_MDRD unknown 89853133 unknown unknown unknown T unknown 11800829 unknown unknown unknown T unknown 51297430 unknown unknown unknown T unknown 49590589 unknown unknown unknown T unknown 34043424 unknown unknown unknown T unknown 14089322 unknown unknown unknown T unknown 02298765 unknown unknown unknown T unknown 69582599 unknown unknown unknown LYMPHOCYTES_AUTO_ unknown 91313918 unknown unknown unkno wn T unknown 18292053 unknown unknown unknown T unknown 05804282 unknown unknown unknown T unknown 46342333 unknown unknown unknown T unknown 11563727 unknown unknown unknown MONOCYTES_AUTO_ unknown 35782216 unknown unknown unknown T unknown 95522222 unknown unknown unknown T unknown 60377649 unknown unknown unknown T unknown 12229782 unknown unknown unknown NEUTROPHILS_AUTO_ unknown 60211932 unknown unknown unkno wn T unknown 46469893 unknown unknown unknown T unknown 43408025 unknown unknown unknown T unknown 65521729 unknown unknown unknown T unknown 12568651 unknown unknown unknown T unknown 38465654 unknown unknown unknown T unknown 76322771 unknown unknown unknown T unknown 21014233 unknown unknown unknown DIPSTICK_URINE_STRIP_L unknown 73617530 unknown unknown unknown OT_NUMBER red_blood_cell_distrib unknown 09929733 unknown unknown unknown ution_width mean_corpuscular_hemog unknown 66075434 unknown unknown unknown lobin_RBC calcium_serum unknown 92642076 unknown unknown unknown Urine_HCG_QC_Result_CL unknown 08217211 unknown unknown unknown IA_Waived_ Thyrotropin_Units_volu unknown 81817503 unknown unknown unknown me_in_Serum_or_Plasma_b y_Detection_limit_lt_0. 05_mIU_L protein_urine_semiquan unknown 65046778 unknown unknown unknown titative_dipstick_ glucose_urine_semiquan unknown 15434892 unknown unknown unknown titative chloride_serum unknown 60023982 unknown unknown unknown Erythrocytes_area_in_U unknown 52006652 unknown unknown unknown rine_sediment_by_Micros copy_high_power_field albumin_globulin_ratio unknown 81439949 unknown unknown unknown _serum sodium_serum unknown 65341162 unknown unknown unknown RBC_urine_dipstick unknown 79584753 unknown unknown unkn own mean_corpuscular_hemog unknown 08147992 unknown unknown unknown lobin_concentration_rbc Alanine_aminotransfera unknown 87903961 unknown unknown unknown se_Enzymatic_activity_v olume_in_Serum_or_Plasm a Albumin_Mass_volume_in unknown 97094924 unknown unknown unknown _Serum_or_Plasma Albumin_Presence_in_Ur unknown 95307714 unknown unknown unknown ine Albumin_Globulin_Mass_ unknown 80692126 unknown unknown unknown Ratio_in_Serum_or_Plasm a Alkaline_phosphatase_E unknown 31436662 unknown unknown unknown nzymatic_activity_volum e_in_Blood creatinine_serum unknown 70155134 unknown unknown unknow n Anion_gap_4_in_Serum_o unknown 72745383 unknown unknown unknown r_Plasma Aspartate_aminotransfe unknown 35296642 unknown unknown unknown rase_Enzymatic_activity _volume_in_Serum_or_Pla sma Bilirubin.total_Mass_v unknown 97391747 unknown unknown unknown olume_in_Serum_or_Plasm a albumin_serum unknown 03987390 unknown unknown unknown Calcium_Moles_volume_i unknown 87927909 unknown unknown unknown n_Serum_or_Plasma carbon_dioxide_serum_t unknown 63518378 unknown unknown unknown otal Chloride_Moles_volume_ unknown 36486113 unknown unknown unknown in_Serum_or_Plasma Creatinine_Mass_volume unknown 39203647 unknown unknown unknown _in_Serum_or_Plasma Globulin_Mass_volume_i unknown 73516348 unknown unknown unknown n_Serum Glucose_Mass_volume_in unknown 02779833 unknown unknown unknown _Serum_or_Plasma neutrophil_count_blood unknown 42882310 unknown unknown unknown lymphocyte_count_blood unknown 89865786 unknown unknown unknown monocyte_count_blood unknown 57888669 unknown unknown un known basophil_count_blood unknown 82608100 unknown unknown un known urine_color unknown 38542694 unknown unknown unknown mean_platelet_volume unknown 97762830 unknown unknown un known anion_gap_serum unknown 41453199 unknown unknown unknown eosinophil_count_blood unknown 63679961 unknown unknown unknown Protein_Mass_volume_in unknown 71081916 unknown unknown unknown _Serum_or_Plasma Sodium_Moles_volume_in unknown 51040912 unknown unknown unknown _Serum_or_Plasma alkaline_phosphatase_s unknown 41237880 unknown unknown unknown loi globulin_serum unknown 30930314 unknown unknown unknown Urea_nitrogen_Mass_vol unknown 60148399 unknown unknown unknown ume_in_Serum_or_Plasma mean_corpuscular_volum unknown 27191509 unknown unknown unknown e_RBC bilirubin_urine unknown 13008164 unknown unknown unknown ketones_urine_by_test_ unknown 20455844 unknown unknown unknown strip nitrite_urine_semiquan unknown 33091518 unknown unknown unknown titative pH_urine_semiquantitat unknown 96559821 unknown unknown unknown bimal specific_gravity_urine unknown 32410505 unknown unknown unknown urobilinogen_urine_sem unknown 27583831 unknown unknown unknown iquantitative_dipstick_ leukocyte_esterase_uri unknown 19884178 unknown unknown unknown ne_by_dipstick appearance_urine unknown 14642368 unknown unknown unknow n potassium_blood unknown 68419942 unknown unknown unknown blood_glucose unknown 10774574 unknown unknown unknown protein_total_serum unknown 59996485 unknown unknown unk nown aspartate_aminotransfe unknown 25040912 unknown unknown unknown rase_SGOT_serum carbon_dioxide_serum_t unknown 15088747 unknown unknown unknown otal alanine_aminotransfera unknown 66591529 unknown unknown unknown se_SGPT_serum bilirubin_serum_total unknown 26284071 unknown unknown u nknown Hematocrit_Volume_Frac unknown 92310131 unknown unknown unknown tion_of_Blood_by_Automa ted_count urinalysis_routine unknown 89220282 unknown unknown unkn own Glomerular_filtration_ unknown 40580662 unknown unknown unknown rate_1.73_sq_M.predicte d_among_non-blacks_Volu me_Rate_Area_in_Serum_P lasma_or_Blood_by_Creat inine-based_formula_MDR D_ culture_status unknown 35496115 unknown unknown unknown Appearance_of_Urine unknown 06742268 unknown unknown unk nown Bilirubin.total_Presen unknown 50385004 unknown unknown unknown ce_in_Urine_by_Test_str ip Color_of_Urine unknown 93422319 unknown unknown unknown Glucose_Mass_volume_in unknown 07034154 unknown unknown unknown _Urine_by_Test_strip Ketones_Mass_volume_in unknown 53107010 unknown unknown unknown _Urine_by_Test_strip Leukocyte_esterase_Pre unknown 77731096 unknown unknown unknown sence_in_Urine_by_Test_ strip Nitrite_Presence_in_Ur unknown 17042580 unknown unknown unknown ine_by_Test_strip pH_of_Urine_by_Test_st unknown 62260061 unknown unknown unknown rip Specific_gravity_of_Ur unknown 94228560 unknown unknown unknown ine_by_Test_strip Urobilinogen_Presence_ unknown 47066346 unknown unknown unknown in_Urine_by_Test_strip potassium_blood unknown 25616646 unknown unknown unknown hematocrit_blood unknown 15299083 unknown unknown unknow n hemoglobin_blood unknown 61024100 unknown unknown unknow n platelet_count unknown 09996453 unknown unknown unknown Glomerular_Filtration_ unknown 69556479 unknown unknown unknown rate Leukocytes_volume_in_B unknown 02536450 unknown unknown unknown lood_by_Automated_count erythrocyte_RBC_count unknown 55485003 unknown unknown u nknown leukocyte_count_blood unknown 26465913 unknown unknown u nknown Basophils_volume_in_Bl unknown 98085516 unknown unknown unknown ood_by_Manual_count eosinophil_count_blood unknown 64378819 unknown unknown unknown Hemoglobin_Mass_volume unknown 70645027 unknown unknown unknown _in_Blood lymphocyte_count_blood unknown 45847737 unknown unknown unknown monocyte_count_blood unknown 77683574 unknown unknown un known neutrophil_count_blood unknown 89088429 unknown unknown unknown Platelet_mean_volume_E unknown 94744007 unknown unknown unknown ntitic_volume_in_Blood_ by_Rees-Ceci Platelets_volume_in_Bl unknown 84248880 unknown unknown unknown ood_by_Automated_count MCH_Entitic_mass_by_Au unknown 52092197 unknown unknown unknown tomated_count MCV_Entitic_volume_by_ unknown 29943521 unknown unknown unknown Automated_count Erythrocyte_distributi unknown 21159425 unknown unknown unknown on_width_Ratio_by_Autom ated_count Erythrocytes_volume_in unknown 50078946 unknown unknown unknown _Blood_by_Automated_cou nt urea_nitrogen_blood unknown 13134963 unknown unknown unk nown TSH unknown 12331064 unknown unknown unknown THYROID_STIMULATING_HO unknown 84942906 unknown unknown unknown RMONE ALBUMIN_GLOBULIN_RATIO unknown 30548199 unknown unknown unknown T unknown 21550412 unknown unknown unknown T unknown 86561638 unknown unknown unknown ALKALINE_PHOSPHATASE unknown 74844141 unknown unknown un known ALT_ALANINE_AMINOTRANS unknown 36227928 unknown unknown unknown FERASE T unknown 88938752 unknown unknown unknown T unknown 49145448 unknown unknown unknown T unknown 38398445 unknown unknown unknown T unknown 62464296 unknown unknown unknown BASOPHILS_AUTO_ unknown 63668424 unknown unknown unknown BILIRUBIN_TOTAL unknown 15176241 unknown unknown unknown T unknown 41736026 unknown unknown unknown T unknown 55479003 unknown unknown unknown T unknown 77273605 unknown unknown unknown T unknown 40415676 unknown unknown unknown T unknown 62453320 unknown unknown unknown T unknown 64243136 unknown unknown unknown EOSINOPHILS_AUTO_ unknown 37446701 unknown unknown unkno wn T unknown 57735405 unknown unknown unknown GFR_-_MDRD unknown 25418075 unknown unknown unknown T unknown 19721926 unknown unknown unknown T unknown 51036697 unknown unknown unknown T unknown 67435205 unknown unknown unknown T unknown 24976525 unknown unknown unknown T unknown 17555407 unknown unknown unknown T unknown 63159936 unknown unknown unknown T unknown 43945965 unknown unknown unknown LYMPHOCYTES_AUTO_ unknown 55683425 unknown unknown unkno wn T unknown 29585539 unknown unknown unknown T unknown 50762741 unknown unknown unknown T unknown 42788548 unknown unknown unknown T unknown 16937105 unknown unknown unknown MONOCYTES_AUTO_ unknown 23588174 unknown unknown unknown T unknown 56367698 unknown unknown unknown T unknown 02294852 unknown unknown unknown T unknown 47102343 unknown unknown unknown NEUTROPHILS_AUTO_ unknown 11330461 unknown unknown unkno wn T unknown 35712661 unknown unknown unknown T unknown 21052988 unknown unknown unknown T unknown 77598138 unknown unknown unknown T unknown 55381098 unknown unknown unknown T unknown 01995840 unknown unknown unknown T unknown 78389707 unknown unknown unknown T unknown 42742259 unknown unknown unknown DIPSTICK_URINE_STRIP_L unknown 85535004 unknown unknown unknown OT_NUMBER red_blood_cell_distrib unknown 00945237 unknown unknown unknown ution_width mean_corpuscular_hemog unknown 08039442 unknown unknown unknown lobin_RBC calcium_serum unknown 01275358 unknown unknown unknown Urine_HCG_QC_Result_CL unknown 13487050 unknown unknown unknown IA_Waived_ Thyrotropin_Units_volu unknown 33379027 unknown unknown unknown me_in_Serum_or_Plasma_b y_Detection_limit_lt_0. 05_mIU_L protein_urine_semiquan unknown 45695091 unknown unknown unknown titative_dipstick_ glucose_urine_semiquan unknown 80412772 unknown unknown unknown titative chloride_serum unknown 34952095 unknown unknown unknown Erythrocytes_area_in_U unknown 11137297 unknown unknown unknown rine_sediment_by_Micros copy_high_power_field albumin_globulin_ratio unknown 66650844 unknown unknown unknown _serum sodium_serum unknown 19763497 unknown unknown unknown RBC_urine_dipstick unknown 64771334 unknown unknown unkn own mean_corpuscular_hemog unknown 74969153 unknown unknown unknown lobin_concentration_rbc Alanine_aminotransfera unknown 70312721 unknown unknown unknown se_Enzymatic_activity_v olume_in_Serum_or_Plasm a Albumin_Mass_volume_in unknown 69176971 unknown unknown unknown _Serum_or_Plasma Albumin_Presence_in_Ur unknown 35110584 unknown unknown unknown ine Albumin_Globulin_Mass_ unknown 39950338 unknown unknown unknown Ratio_in_Serum_or_Plasm a Alkaline_phosphatase_E unknown 83510940 unknown unknown unknown nzymatic_activity_volum e_in_Blood creatinine_serum unknown 78185275 unknown unknown unknow n Anion_gap_4_in_Serum_o unknown 04136575 unknown unknown unknown r_Plasma Aspartate_aminotransfe unknown 32193883 unknown unknown unknown rase_Enzymatic_activity _volume_in_Serum_or_Pla sma Bilirubin.total_Mass_v unknown 00361850 unknown unknown unknown olume_in_Serum_or_Plasm a albumin_serum unknown 30301587 unknown unknown unknown Calcium_Moles_volume_i unknown 38618206 unknown unknown unknown n_Serum_or_Plasma carbon_dioxide_serum_t unknown 68813771 unknown unknown unknown otal Chloride_Moles_volume_ unknown 64353429 unknown unknown unknown in_Serum_or_Plasma Creatinine_Mass_volume unknown 11042834 unknown unknown unknown _in_Serum_or_Plasma Globulin_Mass_volume_i unknown 90676012 unknown unknown unknown n_Serum Glucose_Mass_volume_in unknown 36273608 unknown unknown unknown _Serum_or_Plasma neutrophil_count_blood unknown 00898588 unknown unknown unknown lymphocyte_count_blood unknown 48635594 unknown unknown unknown monocyte_count_blood unknown 81388626 unknown unknown un known basophil_count_blood unknown 92016281 unknown unknown un known urine_color unknown 31354418 unknown unknown unknown mean_platelet_volume unknown 30022096 unknown unknown un known anion_gap_serum unknown 28939025 unknown unknown unknown eosinophil_count_blood unknown 10806945 unknown unknown unknown Protein_Mass_volume_in unknown 86652023 unknown unknown unknown _Serum_or_Plasma Sodium_Moles_volume_in unknown 71001368 unknown unknown unknown _Serum_or_Plasma alkaline_phosphatase_s unknown 91868453 unknown unknown unknown loi globulin_serum unknown 05751430 unknown unknown unknown Urea_nitrogen_Mass_vol unknown 39524744 unknown unknown unknown ume_in_Serum_or_Plasma mean_corpuscular_volum unknown 24001188 unknown unknown unknown e_RBC bilirubin_urine unknown 66010085 unknown unknown unknown ketones_urine_by_test_ unknown 80696639 unknown unknown unknown strip nitrite_urine_semiquan unknown 32648732 unknown unknown unknown titative pH_urine_semiquantitat unknown 62564448 unknown unknown unknown bimal specific_gravity_urine unknown 85700746 unknown unknown unknown urobilinogen_urine_sem unknown 48804572 unknown unknown unknown iquantitative_dipstick_ leukocyte_esterase_uri unknown 14280012 unknown unknown unknown ne_by_dipstick appearance_urine unknown 81214759 unknown unknown unknow n potassium_blood unknown 37266168 unknown unknown unknown blood_glucose unknown 07671428 unknown unknown unknown protein_total_serum unknown 27708920 unknown unknown unk nown aspartate_aminotransfe unknown 91529453 unknown unknown unknown rase_SGOT_serum carbon_dioxide_serum_t unknown 83944900 unknown unknown unknown otal alanine_aminotransfera unknown 36651673 unknown unknown unknown se_SGPT_serum bilirubin_serum_total unknown 99896671 unknown unknown u nknown Hematocrit_Volume_Frac unknown 88168443 unknown unknown unknown tion_of_Blood_by_Automa ted_count urinalysis_routine unknown 28205326 unknown unknown unkn own Glomerular_filtration_ unknown 24105268 unknown unknown unknown rate_1.73_sq_M.predicte d_among_non-blacks_Volu me_Rate_Area_in_Serum_P lasma_or_Blood_by_Creat inine-based_formula_MDR D_ culture_status unknown 78801387 unknown unknown unknown Appearance_of_Urine unknown 96930850 unknown unknown unk nown Bilirubin.total_Presen unknown 36763387 unknown unknown unknown ce_in_Urine_by_Test_str ip Color_of_Urine unknown 78440420 unknown unknown unknown Glucose_Mass_volume_in unknown 17796835 unknown unknown unknown _Urine_by_Test_strip Ketones_Mass_volume_in unknown 49186670 unknown unknown unknown _Urine_by_Test_strip Leukocyte_esterase_Pre unknown 38892634 unknown unknown unknown sence_in_Urine_by_Test_ strip Nitrite_Presence_in_Ur unknown 39733998 unknown unknown unknown ine_by_Test_strip pH_of_Urine_by_Test_st unknown 30234340 unknown unknown unknown rip Specific_gravity_of_Ur unknown 05744291 unknown unknown unknown ine_by_Test_strip Urobilinogen_Presence_ unknown 58632296 unknown unknown unknown in_Urine_by_Test_strip potassium_blood unknown 47916860 unknown unknown unknown hematocrit_blood unknown 88776376 unknown unknown unknow n hemoglobin_blood unknown 64958219 unknown unknown unknow n platelet_count unknown 45273978 unknown unknown unknown Glomerular_Filtration_ unknown 29689928 unknown unknown unknown rate Leukocytes_volume_in_B unknown 39715094 unknown unknown unknown lood_by_Automated_count erythrocyte_RBC_count unknown 74639734 unknown unknown u nknown leukocyte_count_blood unknown 40059067 unknown unknown u nknown Basophils_volume_in_Bl unknown 86344665 unknown unknown unknown ood_by_Manual_count eosinophil_count_blood unknown 37784405 unknown unknown unknown Hemoglobin_Mass_volume unknown 05884249 unknown unknown unknown _in_Blood lymphocyte_count_blood unknown 25820720 unknown unknown unknown monocyte_count_blood unknown 74290156 unknown unknown un known neutrophil_count_blood unknown 74156667 unknown unknown unknown Platelet_mean_volume_E unknown 60992925 unknown unknown unknown ntitic_volume_in_Blood_ by_Rees-Ceci Platelets_volume_in_Bl unknown 59075419 unknown unknown unknown ood_by_Automated_count MCH_Entitic_mass_by_Au unknown 03620682 unknown unknown unknown tomated_count MCV_Entitic_volume_by_ unknown 67359365 unknown unknown unknown Automated_count Erythrocyte_distributi unknown 02103289 unknown unknown unknown on_width_Ratio_by_Autom ated_count Erythrocytes_volume_in unknown 47745100 unknown unknown unknown _Blood_by_Automated_cou nt urea_nitrogen_blood unknown 58282377 unknown unknown unk nown TSH unknown 20210228 [...] Walk-In T unknown 9.0 unknown GAP unknown [facility] [place] [facility]In GFR_-_MDRD unknown 63 unknown mL/mi GFR unknown unknown Clinic n [facility] [place] Walk-In T unknown 63 unknown mL/mi GFR_-_M unknown un known Clinic n DRD [facility] [place] Walk-In T unknown 2.7 unknown GLOB unknown [facility] [place] Walk-In T unknown 167 unknown mg/dL GLU unknown [facility] [place] Walk-In T unknown 43.6 unknown % HCT unknown [facility] [place] Walk-In T unknown 13.7 unknown g/dL HGB unknown [facility] [place] Walk[facility]In T unknown 4.2 unknown meq/L K unknown [facility] [place] Walk-In T unknown 1.5 10 unknown LYMPH_A unknown un known Clinic 3/UL UTO_ [facility] [facility] LYMPHOCYTES_ unknown 1.5 10 unknown LY_ unknow n unknown Clinic AUTO_ 3/UL [facility] T unknown 32.5 unknown pg MCH unknown [facility] T unknown 31.4 unknown g/dL MCHC unknown [facility] T unknown 103.6 unknown fL MCV unknown [facility] T unknown 1.1 10 unknown MONO_AU unknown un known Clinic 3/UL TO_ [facility] MONOCYTES_AU unknown 1.1 10 unknown MO_ unknow n unknown Clinic TO_ 3/UL [facility] T unknown 11.4 unknown fL MPV unknown [facility] T unknown 141 unknown mmol/ NA unknown [facility] L [facility] [...] unknown 15.0 unknown % RDW unknown unk [facility] T unknown 2.5 unknown mg/dL TOTAL_B unknown un known Clinic AM[facility] T unknown 0.30143 unknown m[iU] TSH unknown un known Clinic [...] & [facility] Thyrotropin_ unknown 0.93577 unknown m[iU] _[id number]- unkn own unknown Clinic [...] & [facility] TSH unknown 0.11770 unknown m[iU] _[id number] unknown un known Clinic /mL [facility] THYROID_STIM unknown 0.22800 unknown m[iU] rTSH unkno wn unknown Clinic [...] T unknown 28 unknown mg/dL BUN unknown [facility] T unknown 9.3 unknown mg/dL CA unknown [facility] T unknown 104 unknown mmol/ [facility] T unknown 28 unknown mmol/ CO2 unknown [facility] L [facility] T unknown 1.1 unknown mg/dL CREAT unknown [facility] T unknown 0.1 10 unknown EOS_AUT unknown un known Clinic 3/UL O_ [facility] EOSINOPHILS_ unknown 0.1 10 unknown EO_ unknow n unknown Clinic AUTO_ 3/UL [facility] T unknown 9.0 unknown GAP unknown [facility] GFR_-_MDRD unknown 63 unknown mL/mi GFR unknown unknown Clinic n [facility] T unknown 63 unknown mL/mi GFR_-_M unknown un known Clinic n DRD [facility] T unknown 2.7 unknown GLOB unknown [facility] T unknown 167 unknown mg/dL GLU unknown [facility] T unknown 43.6 unknown % HCT unknown [facility] T unknown 13.7 unknown g/dL HGB unknown [facility] T unknown 4.2 unknown meq/L K unknown [facility] T unknown 1.5 10 unknown LYMPH_A unknown un known Clinic 3/UL UTO_ [facility] LYMPHOCYTES_ unknown 1.5 10 unknown LY_ unknow n unknown Clinic AUTO_ 3/UL [facility] T unknown 32.5 unknown pg MCH unknown [facility] T unknown 31.4 unknown g/dL MCHC unknown [facility] T unknown 103.6 unknown fL MCV unknown [facility] T unknown 1.1 10 unknown MONO_AU unknown un known Clinic 3/UL TO_ [facility] MONOCYTES_AU unknown 1.1 10 unknown MO_ unknow n unknown Clinic TO_ 3/UL [facility] T unknown 11.4 unknown fL MPV unknown [facility] T unknown 141 unknown mmol/ NA unknown [facility] L [facility] T unknown 5.6 10 unknown NEUT_AU unknown un known Clinic 3/UL TO_ [facility] NEUTROPHILS_ unknown 5.6 10 unknown NE_ unknow n unknown Clinic AUTO_ 3/UL [facility] T unknown 237 10 unknown PLT unknown [facility] 3/UL [facility] T unknown 6.7 unknown g/dL PRO_TOT unknown un known Clinic AL [facility] T unknown 4.21 10 unknown RBC unknown un known Clinic 6/UL [facility] T unknown 15.0 unknown % RDW unknown [facility] T unknown 2.5 unknown mg/dL TOTAL_B unknown un known Clinic [facility] T unknown 0.76258 unknown m[iU] TSH unknown un known Clinic [...] [facility] Thyrotropin_ unknown 0.21634 unknown m[iU] _[id number]- unkn own unknown Clinic [...] [facility] TSH unknown 0.83500 unknown m[iU] _[id number] unknown un known Clinic /mL [facility] THYROID_STIM unknown 0.72696 unknown m[iU] rTSH unkno wn unknown Clinic ULATING_HORMO /mL [facility] Vital Signs date measurement value source 20210228 BMI 31.68 kg/m2 [id number] BP_diastolic 81 mm[Hg] [id number] BP_systolic 131 mm[Hg] [id number] heart_rate 90 /min [id number] height_metric 177.8 cm [id number] height_standard 70 in [id number] respiration_rate 20 /min [id number] temperature_metric 36.28 C [...] 220 lb Social History date description facility [id number]
[2021-03-04 16:29] LABS: DIGOXIN 0.2 ng/mL
--- NOTE | 2021-03-04 16:44 | PHARMACY PROGRESS NOTE ---
- Best Possible Medication History Admit Date and Time: 03/04/21 1601 Processed by: Nursing Medication History completed: Yes Patient Interview: Completed Secondary Source(s): Pharmacy records, Insurance records (MED REC COMPLETED BY NURSING. SAYS PATIENT DOES TAKE ELIQUIS- NO FILL HX) As the person ultimately responsible for medication therapy, providers are able to order a medication from an existing home medication list in [facility] via the "Reconcile Routine" prior to Confirmation of that medication by administrative support clerk. Such practice is discouraged except when the physician, in their clinical judgment, deems that a medical need exists for a medication without regard to previous use.
[2021-03-04] MEDS: SODIUM CHLORIDE FLUSH 0.9% 10 ML SYRINGE IVP SCH (18:00)
[2021-03-04] MEDS: METOPROLOL TARTRATE 25 MG TABLET PO SCH (20:12)
[2021-03-04] MEDS ORDERED: METOPROLOL TARTRATE 25 MG TABLET PO SCH (21:00)
[2021-03-04] MEDS ORDERED: APIXABAN 5 MG TABLET PO SCH (21:00)
--- NOTE | 2021-03-04 21:51 | Ultrasound Report ---
PROCEDURE: Retroperitoneal INDICATIONS: hematuria TECHNIQUE: Real-time scanning was performed of the retroperitoneal organs, with image documentation. COMPARISON: None. FINDINGS: Kidneys: Kidneys are normal in size. Right kidney measures 9.8 cm long; left kidney measures 10.0 c m long. Right renal cortical thickness is 1.6 cm; left renal cortical thickness is 1.7 cm. In the up per pole the right kidney, there is a possibly solid isoechoic to hypoechoic mass measuring 2.3 x 2.2 x 2.4 cm. Differential includes prominent column of Celio seen. Left inferior pole cyst measuring 1.5 cm. Prevoid bladder volume measures 121 cc. Post void residual precluded as the patient was unable to voi d. Both ureteral jets were visualized. IMPRESSION: Focal isoechoic to hypoechoic masslike appearance involving the upper pole the right kidney, with dif ferential as above. Technically, solid neoplasm cannot be excluded recommend further evaluation with contrast-enhanced renal protocol CT or MRI in the nonemergent setting. Left renal cyst. No hydronephrosis Reviewed by: Pravin Black MD on 03/04/2021 9:50 PM PDT Approved by: Pravin Black MD on 03/04/2021 9:50 PM PDT Station ID: [id number]
[2021-03-04 22:15] LABS: HCT - HEMATOCRIT 38.8 % (42.0-52.0); HGB - HEMOGLOBIN 12.5 g/dL (14.0-18.0)
[2021-03-04 23:30] LABS: MAGNESIUM 2.1 mg/dL (1.7-2.8)
[2021-03-05] MEDS: SODIUM CHLORIDE FLUSH 0.9% 10 ML SYRINGE IVP SCH ×2 (02:55→13:56)
[2021-03-05] MEDS: FUROSEMIDE 40 MG/4 ML VIAL IVP SCH ×2 (06:03→13:56)
[2021-03-05 06:08] LABS: BASOPHILS % (AUTO) 0.6 %; EOSINOPHILS # (AUTO) 0.2 10^3/uL (0.0-0.7); EOSINOPHILS % (AUTO) 2.5 %; HCT - HEMATOCRIT 38.3 % (42.0-52.0); HGB - HEMOGLOBIN 12.9 g/dL (14.0-18.0); LYMPHOCYTES # (AUTO) 1.5 10^3/uL (1.5-3.5); LYMPHOCYTES % (AUTO) 23.1 %; MEAN CORPUSCULAR HEMOGLOBIN 33.6 pg (27.0-31.0); MEAN CORPUSCULAR HGB CONC 33.7 g/dL (32.0-36.0); MEAN CORPUSCULAR VOLUME 99.7 fL (80.0-94.0); MEAN PLATELET VOLUME 10.7 fL (7.4-11.4); MONOCYTES # (AUTO) 0.9 10^3/uL (0.0-1.0); MONOCYTES % (AUTO) 13.9 %; NEUTROPHILS # (AUTO) 3.9 10^3/uL (1.5-6.6); NEUTROPHILS % (AUTO) 59.7 %; PLT - PLATELET COUNT 224 10^3/uL (130-450); RED BLOOD COUNT 3.84 10^6/uL (4.70-6.10); RED CELL DISTRIBUTION WIDTH 14.8 % (12.0-15.0); WHITE BLOOD COUNT 6.5 x10^3/uL (4.8-10.8)
[2021-03-05 06:24] LABS: ALBUMIN 3.6 g/dL (3.2-5.5); ALBUMIN/GLOBULIN RATIO 1.6 (1.0-2.2); BILIRUBIN,TOTAL 2.4 mg/dL (0.2-1.0); CALCIUM 8.6 mg/dL (8.5-10.3); CREATININE 1.1 mg/dL (0.6-1.2); POTASSIUM 3.2 mmol/L (3.5-5.0); TOTAL PROTEIN 5.9 g/dL (6.7-8.2)
[2021-03-05] MEDS ORDERED: POTASSIUM CHLORIDE 20 MEQ TABLET PO ONE (06:56)
[2021-03-05] MEDS ORDERED: MULTIVITAMIN TABLET PO SCH (08:00)
[2021-03-05] MEDS ORDERED: DIGOXIN 125 MCG TABLET PO SCH ×2 (09:00)
[2021-03-05] MEDS ORDERED: ENOXAPARIN 40 MG/0.4 ML SYRINGE SUBQ SCH (09:00)
[2021-03-05] MEDS: METOPROLOL TARTRATE 25 MG TABLET PO SCH (10:08)
--- NOTE | 2021-03-05 16:15 | Discharge Plan ---
Discharge Plan Problem Reviewed?: Yes Disposition: Home, Self Care Condition: Fair Diet: Low Sodium (this is very important) Activity Restrictions: Activity as Tolerated Shower Restrictions: No Instruction Topics: Heart Failure Warning Signs, Heart Failure Tracking Weight, Heart Failure Diet Changes Health Concerns: You were short of air from Congestive Heart Failure (CHF). You were placed in "Observation" status to provide IV diuretic medicines to drain the extra fluid that was found in your lungs. Since you have had good fluid output and your breathing has improved and oxygen levels are better, you are being discharged today. The preferable management would have been to undergo an Echocardiogram (ultrasound of the heart) while here, to evaluate the cause for your fluid build up. But we do not have Echocardiography available here on Saturdays or Sundays. You therefore need to have an Echocardiogram done as an outpatient in the upcoming days. Your Primary Care Provider or Rotoformer Backtender can send in an order for an Echocardiogram to be done at this hospital as an outpatient in this upcoming week. You then need an appointment with your Rotoformer Backtender regarding this hospitalization. Please resume all your usual medicines that you took pre-hospitalization. Keep taking the new dose of Lasix that was recently prescribed. Please plan on seeing the Urologist at your upcoming appointment, as was already scheduled, to evaluate the blood in your urine. Plan of Treatment: As above. Care Goals: Improvement in symptoms and stabilization are the goals. Assessment: Patient and understand. This written reminder is provided at discharge. Additional Instructions or Follow Up instructions: If you have new or worsening symptoms, call your PCP or structural steel worker apprentice for advice or come to the ER. No Smoking: If you smoke, Please STOP! Call for help. Follow-up with: Chris Arroyo MD [Provider Admit Priv/Credential] - Rudy Olmos MD [Physician No Access] - Winnie Aden MD [Physician No Access] -
--- NOTE | 2021-03-05 16:44 | DISCHARGE SUMMARY ---
Discharge Summary Admit Date: 03/04/21 Discharge Date: 03/05/21 Discharging Provider: Dr Pamela Fritz Primary Care Provider: Dr Winnie Aden, Dr Chris Arroyo Condition at Discharge: Fair Discharge Disposition: 01 Home, Self Care - HPI History of Present Illness: From the admission H&P of Adam Duran NP: This is an 89y/o WM with pmh significant of Congestive heart failure, Hyp ertension, High cholesterol, Atrial fibrillation, asthma, hx of pancreatic cancer with whipple procedure, who present to ER complain of shortness of breath. Pt report in past couple weeks, he feel progressively worsening for his shortness of breath. Yesterday he feel much worse. He has gained about 12 lb recently. He was prescribed PO Lasix in [place] [facility] 4 days ago, but symptoms persistent. He report he continue Eliquis for afib. He also report he had Whipple procedure about 3 years ago when he was diagnosis of pancreatic cancer. He was annually checked by his oncologist, as far he knew he is cancer free. Pt also report he had hematuria for about one year. So far he was scheduled to see urologist but he still did not see yet. He denies chest pain, fever, chills. In routine laboratory test show patient had a BNP 546. In the ER, patient is afebrile, patient is hemodynamic stable, rales are heard. CXR showed pulmonary edema and BNP was 546. He is being placed in Observation status for iv diuresis. - HOSPITAL COURSE Hospital Course: (1) CHF exacerbation The record stated he had history of CHF, but the patient and at bedside said he goes to a [employer] yearly for his Afib only. He was started on iv b.i.d. Lasix and had good diuresis and was able to lay flat by the next day. His tropinins ruled him out for an RI. BNP was 546>> 449 tghe next day. We ordered an Echo to evaluate LV contractility and his murmur, but no Echo is available on the weekend. He had a walking oximetry test and did not desaturate on room air. He was discharged home with advice to resume his meds (except stop Eliquis) and to continue the new Lasix 40 mg daily for 3 more days then to take it prn edema. He was instructed about decreasing salt intake and monitoring daily weights. (2) Heart murmur We have no prior Echo here on this patient and Echo service not available on weekends. He needs an Echocardiogram done as an outpatient, Dx: CHF, heart murmur. (3) Hematuria Patient reported he has had a year of intermittent hematuria and etiology is unknown so far. He presented with significant hematuria again. His HGB was 14.7, then 12.9 at discharge. While here, we held the Eliquis and was advised to not use it while hematuria persists. He needs to keep the upcoming Urology appointment. (4) Afib His heart rate was stable, we continued his Bisoprolol dose but stopped Eliquis for now due to hematuria. Resumption of Eliquis will depend on his PCP or Urology. (5) History of pancreatic cancer Patient reported he had Whipple procedure for his pancreatic cancer three years ago and said he has been cancer free for three years, and has followup with his Oncologist annually. He has a slightly elevated Bili. US of retroperiteum showed a mass in the upper pole of the left kidney and a right renal cyst. - ALLERGIES Allergies/Adverse Reactions: Allergies Allergy/AdvReac Type Severity Reaction Status Date / Time hydrocodone Allergy Unknown Verified 03/04/21 12:36 morphine Allergy Unknown Verified 03/04/21 12:36 tamsulosin [From Flomax] Allergy Unknown Verified 03/04/21 12:36 tree nut Allergy Respiratory Verified 03/04/21 11:44 - MEDICATIONS Home Medications: Ambulatory Orders Medication Instructions Recorded Confirmed Atorvastatin [Lipitor] 80 mg ORAL DAILY 04/16/15 03/04/21 Bisoprolol Fumarate [Zebeta] 2.5 mg ORAL DAILY 04/16/15 03/04/21 Multivit-Min/Folic/Vit K/Lycop 1 tab ORAL DAILY 04/16/15 03/04/21 [One-A-Day Men's 50 Plus Tablet] Furosemide [Lasix] 40 mg PO DAILY 11/29/16 03/04/21 Digoxin [Lanoxin] 62.5 mcg PO DAILY 03/04/21 03/04/21 Furosemide [Lasix] 40 mg PO DAILY #30 tablet 03/05/21 - PHYSICAL EXAM AT DISCHARGE General Appearance: positive: No acute distress, Alert Eyes Bilateral: positive: Normal inspection, EOMI ENT: positive: ENT inspection nml Neck: positive: Nml inspection, No JVD Respiratory: positive: No respiratory distress, Breath sounds nml Cardiovascular: positive: Irregularly irregular, Systolic murmur Abdomen: positive: Non-tender, Nml bowel sounds, No distention Skin: positive: Warm, Dry, Pallor Extremities: positive: Non-tender, No pedal edema Neurologic/Psychiatric: positive: Oriented x3 (Non-focal, except poor memory) - LABS Result Diagrams: 03/05/21 05:50 03/05/21 05:50 - FOLLOW UP Follow Up: See PCP in hospital discharge, in the upcoming week. Keep the pending Urology appointment. - TIME SPENT Time Spent in Discharge (Minutes): 45
[2021-03-05 17:50] VITALS: BP 125/80
== END 2021-03-05 18:30 | disposition home or self-care (01) ==
LOC: ED 11:31 → MS2 16:01
PROVIDERS: ADMIT Nurse Practitioner Gerontology; ATTEND Internal Medicine
DX: I11.0 Hypertensive heart disease with heart failure (principal); I50.9 Heart failure, unspecified; R01.1 Cardiac murmur, unspecified; I48.91 Unspecified atrial fibrillation; R31.9 Hematuria, unspecified; G47.33 Obstructive sleep apnea (adult) (pediatric); Z20.822 Contact with and (suspected) exposure to COVID-19; Z79.01 Long term (current) use of anticoagulants; E78.00 Pure hypercholesterolemia, unspecified
CPT/HCPCS: 36415; 71045; 76770; 80053; 80162; 81001; 82803; 83690; 83735; 83880; 84100; 84484; 85014; 85018; 85025; 85379; 85610; 85730; 87631; 93005; 94761; 96374; 96376; 99285; A9270; G0378; 0202U; 87086

== ENCOUNTER 2021-06-30 15:41 | Emergency (ER) | payer MEDICARE, BC ==
[2021-06-30 16:10] LABS: BASOPHILS % (AUTO) 0.5 %; EOSINOPHILS # (AUTO) 0.1 10^3/uL (0.0-0.7); EOSINOPHILS % (AUTO) 2.2 %; HCT - HEMATOCRIT 39.7 % (42.0-52.0); HGB - HEMOGLOBIN 12.9 g/dL (14.0-18.0); LYMPHOCYTES # (AUTO) 1.2 10^3/uL (1.5-3.5); LYMPHOCYTES % (AUTO) 18.9 %; MEAN CORPUSCULAR HEMOGLOBIN 32.3 pg (27.0-31.0); MEAN CORPUSCULAR HGB CONC 32.5 g/dL (32.0-36.0); MEAN CORPUSCULAR VOLUME 99.5 fL (80.0-94.0); MEAN PLATELET VOLUME 9.4 fL (7.4-11.4); MONOCYTES # (AUTO) 0.8 10^3/uL (0.0-1.0); MONOCYTES % (AUTO) 12.4 %; NEUTROPHILS # (AUTO) 4.2 10^3/uL (1.5-6.6); NEUTROPHILS % (AUTO) 65.8 %; PLT - PLATELET COUNT 260 10^3/uL (130-450); RED BLOOD COUNT 3.99 10^6/uL (4.70-6.10); RED CELL DISTRIBUTION WIDTH 14.8 % (12.0-15.0); WHITE BLOOD COUNT 6.4 x10^3/uL (4.8-10.8)
[2021-06-30 16:24] LABS: ALBUMIN/GLOBULIN RATIO 1.5 (1.0-2.2); BILIRUBIN,TOTAL 1.7 mg/dL (0.2-1.0); POTASSIUM 4.1 mmol/L (3.5-5.0); TOTAL PROTEIN 6.7 g/dL (6.7-8.2)
--- NOTE | 2021-06-30 16:25 | CT Report ---
PROCEDURE: HEAD WO INDICATIONS: fall, head injury 3 days ago, on eliquis TECHNIQUE: Noncontrast 4.5 mm thick angled axial sections acquired from the foramen magnum to the vertex. For r adiation dose reduction, the following was used: automated exposure control, adjustment of mA and/or kV according to patient size. COMPARISON: None. FINDINGS: Image quality: Excellent. CSF spaces: Basal cisterns are patent. No extra-axial fluid collections. Ventricles are normal in size and shape. Brain: No midline shift. No intracranial masses or hemorrhage. Billy-white matter interface is norm al. Skull and face: Calvarium and visualized facial bones are intact, without suspicious lesions. Sinuses: Moderate right and mild left maxillary sinus mucosal thickening. Complete opacification of the right frontal sinus. Mild bilateral ethmoid air cell mucosal thickening anteriorly. Mastoids avila r. IMPRESSION: 1. No acute intracranial abnormality. 2. Sinus disease. Reviewed by: Guicho Fregoso MD on 06/30/2021 4:23 PM PDT Approved by: Guicho Fregoso MD on 06/30/2021 4:23 PM PDT Station ID: [id number]
--- NOTE | 2021-06-30 17:08 | ED Physician Documentation ---
History of Present Illness - Stated complaint Stated Complaint: LETHARGIC,LOW BACK PX,FALL - Chief complaint Chief Complaint: Trauma Hd/Nk - Additonal information Additional information: 89-year-old male presents the emergency department for evaluation of feeling weak and tired. He did have a ground-level fall 3 days ago in which he struck his head. He is anticoagulated on Eliquis secondary to a history of valve repair/replacement as well as coronary artery disease. He reports that he was in the bathroom and had just flush the toilet when he began to feel faint and syncopized. Patient was able to get up off the ground on his own and get back to bed and told his about the fainting event. Since then he has felt fatigued. Patient underwent valve clipping June 07 with cardiothoracic surgery at [facility]. He had been progressing well until June 24 when he had a very brief episode of sudden sharp pain in the left anterior chest. He has not had a return of that since but has been feeling progressively fatigued. He denies at this time any chest pain or shortness of air. Review of Systems Constitutional: reports: Fatigue. denies: Fever, Chills Eyes: reports: Reviewed and negative Nose: reports: Reviewed and negative Throat: reports: Reviewed and negative Cardiac: reports: Chest pain / pressure GI: reports: Other (loss of appetite). denies: Abdominal Pain, Abdominal Swelling : reports: Reviewed and negative Skin: reports: Reviewed and negative Neurologic: reports: Syncope. denies: Numbness, Difficulty speaking, Near syncope, Confused, Altered mental status, Headache, Head injury, LOC Psychiatric: reports: Reviewed and negative PD PAST MEDICAL HISTORY - Past Medical History Cardiovascular: Congestive heart failure, Hypertension, High cholesterol, Atrial fibrillation Respiratory: None Endocrine/Autoimmune: None GI: GERD : None HEENT: Chronic hearing loss Psych: None Musculoskeletal: None, Chronic back pain Derm: Other - Past Surgical History Past Surgical History: Yes Cardiovascular: Other HEENT: Tonsil/Adenoidectomy - Present Medications Home Medications: Ambulatory Orders Medication Instructions Recorded Confirmed Atorvastatin [Lipitor] 80 mg ORAL DAILY 04/16/15 03/04/21 Bisoprolol Fumarate [Zebeta] 2.5 mg ORAL DAILY 04/16/15 03/04/21 Multivit-Min/Folic/Vit K/Lycop 1 tab ORAL DAILY 04/16/15 03/04/21 [One-A-Day Men's 50 Plus Tablet] Furosemide [Lasix] 40 mg PO DAILY 11/29/16 03/04/21 Digoxin [Lanoxin] 62.5 mcg PO DAILY 03/04/21 03/04/21 Furosemide [Lasix] 40 mg PO DAILY #30 tablet 03/05/21 - Allergies Allergies/Adverse Reactions: Allergies Allergy/AdvReac Type Severity Reaction Status Date / Time hydrocodone Allergy Unknown Verified 06/30/21 15:46 morphine Allergy Unknown Verified 06/30/21 15:46 tamsulosin [From Flomax] Allergy Unknown Verified 06/30/21 15:46 tree nut Allergy Respiratory Verified 06/30/21 15:46 - Social History Does the pt smoke?: No Smoking Status: Never smoker Does the pt drink ETOH?: No Does the pt have substance abuse?: No - Immunizations Immunizations are current?: Yes - POLST Patient has POLST: Yes PD ED PE EXPANDED - General General: Alert, No acute distress, Well developed/nourished - Cardiac Cardiac: Regular Rate, Murmur Present, Radial strong equal, Cap refill < 2 sec - Respiratory Respiratory: Clear to ausultation dereck. No: Distress, Labored - Abdomen Abdomen: Normal Bowel sounds. No: Tender to palpation - Derm Derm: Normal color, Warm and dry. No: Rash - Extremities Extremities: Normal. No: Deformity, Tenderness - Neuro Neuro: Alert and Oriented X 3, Normal gait, Normal finger nose, Normal speech - GCS Eye Opening: Spontaneous Motor: Obeys Commands Verbal: Oriented Total: 15 Results - Vitals Vitals: Vital Signs - 24 hr 06/30/21 06/30/21 06/30/21 15:46 16:05 16:31 Temperature 36.5 C Heart Rate 72 77 Heart Rate [ 76 Sitting] Heart Rate [ 79 Standing] Heart Rate [ 61 Supine] Respiratory 16 16 Rate Blood Pressure 112/76 109/73 Blood Pressure 131/81 H [Sitting] Blood Pressure 135/89 H [Standing] Blood Pressure 127/84 H [Supine] O2 Saturation 97 98 Oxygen O2 Source Room air - EKG (time done) 1718 Rate: Rate (enter#) (75) Rhythm: Atrial fibrillation [place]: Other Intervals: Prolonged QT QRS: Normal Ischemia: Non specific changes Compare to prior EKG: Unchanged from prior EKG Computer interpretation: Agree with computer - Labs Labs: Laboratory Tests 06/30/21 06/30/21 06/30/21 16:03 16:03 16:03 WBC 6.4 RBC 3.99 L Hgb 12.9 L Hct 39.7 L MCV 99.5 H MCH 32.3 H MCHC 32.5 RDW 14.8 Plt Count 260 MPV 9.4 Neut # (Auto) 4.2 Lymph # (Auto) 1.2 L [place] # (Auto) 0.8 Eos # (Auto) 0.1 Baso # (Auto) 0.0 Absolute Nucleated RBC 0.00 Nucleated RBC % 0.0 Sodium 140 Potassium 4.1 Chloride 101 Carbon Dioxide 29 Anion Gap 10.0 BUN 21 H Creatinine 1.0 Estimated GFR (MDRD) 71 L Glucose 119 H Calcium 9.0 Total Bilirubin 1.7 H AST 17 ALT 14 Alkaline Phosphatase 61 Troponin I High Sens 7.6 B-Natriuretic Peptide Total Protein 6.7 Albumin 4.0 Globulin 2.7 Albumin/Globulin Ratio 1.5 Lipase 30 Urine Color Urine Clarity Urine pH Ur Specific [place] Urine Protein Urine Glucose (UA) Urine Ketones Urine Occult Blood Urine Nitrite Urine Bilirubin Urine Urobilinogen Ur Leukocyte Esterase Ur Microscopic Review Urine Culture Comments 06/30/21 06/30/21 16:03 17:45 WBC RBC Hgb Hct MCV MCH MCHC RDW Plt Count MPV Neut # (Auto) Lymph # (Auto) [place] # (Auto) Eos # (Auto) Baso # (Auto) Absolute Nucleated RBC Nucleated RBC % Sodium Potassium Chloride Carbon Dioxide Anion Gap BUN Creatinine Estimated GFR (MDRD) Glucose Calcium Total Bilirubin AST ALT Alkaline Phosphatase Troponin I High Sens B-Natriuretic Peptide 325 H Total Protein Albumin Globulin Albumin/Globulin Ratio Lipase Urine Color YELLOW Urine Clarity CLEAR Urine pH 5.0 Ur Specific [place] >=1.030 H Urine Protein NEGATIVE Urine Glucose (UA) NEGATIVE Urine Ketones TRACE Urine Occult Blood TRACE-INTA Urine Nitrite NEGATIVE Urine Bilirubin NEGATIVE Urine Urobilinogen 0.2 (NORMAL) Ur Leukocyte Esterase NEGATIVE Ur Microscopic Review NOT INDICATED Urine Culture Comments NOT INDICATED - Rads (name of study) CXR Radiology: Final report received (Cardiomegaly mild vascular congestion and small right pleural effusion with atelectasis and/or infiltrate.) CT head Radiology: Final report received (no acut eintracranial process) PD MEDICAL DECISION MAKING - ED course Complexity details: reviewed results, d/w patient, d/w family ED course: 89-year-old male who has a history of atrial fib anticoagulated on Eliquis as well as a recent mitral valve clipping June 07 presents the emergency department with a syncopal event 3 nights ago after using the restroom. He is unsure for how long he had a lapse of consciousness but since then he has felt somewhat fatigued. Here in the emergency department screening labs were unrevealing. High-sensitivity troponin is negative. His EKG remains atrial fibrillation rate well controlled. Unchanged from previous EKG. Chest x-ray is suggestive of mild CHF and cardiomegaly with right-sided pleural effusion. His BNP today is 342 which is less than it has historically been. This gentleman is not hypoxic and has unremarkable cardiopulmonary auscultation. Head CT was negative for acute intracranial deficits Orthostatics were negative. The etiology of his syncope was not clear and he was offered admission to the hospital for further evaluation heart rate monitoring as well as likely echocardiogram in the morning however he declined this and feels better at this time would prefer to be discharged home. He was advised very close follow-up with his cable tender as well as his PCP emergent and worrisome return precautions were discussed. Departure - Departure Disposition: 01 Home, Self Care Clinical Impression: Syncope and collapse Atrial fibrillation Qualifiers: Atrial fibrillation type: unspecified chronic Qualified Code(s): I48.20 - Chronic atrial fibrillation, unspecified; I48.2 - Chronic atrial fibrillation Condition: Stable Record reviewed to determine appropriate education?: Yes Instructions: ED Fainting Unkn Cause Comments: Kwame were seen in the ER today after a fainting episode 3 nights ago. We did do a CT of your head that did not show any bruising or bleeding. Your screening labs do not show any worrisome findings and are essentially unchanged from your baseline labs. We did check your vital signs and different positions and did not note any worrisome abnormalities. It is important that you discuss this ED visit with your primary care doctor as well as your cable tender. You may benefit from further evaluation such as an echocardiogram. If at any point you develop chest pain, have a recurrent fainting episode, have slurred speech, weakness in your arm or leg or facial droop then please return immediately to the emergency department for a second evaluation.
[2021-06-30] MEDS ORDERED: SODIUM CHLORIDE 0.9% 1,000 ML IV STA (17:11)
--- NOTE | 2021-06-30 17:55 | XRAY Report ---
PROCEDURE: Chest 1 View X-Ray INDICATIONS: syncope TECHNIQUE: One view of the chest was acquired. COMPARISON: 03/04/2021 FINDINGS: Surgical changes and devices: None. Lungs and pleura: Minimal blunting of the right costophrenic angle. Left pleural space clear. Mediastinum: Heart size enlarged, and there is mild vascular congestion present. Atherosclerotic vasc ular calcification noted in the aortic arch. Bones and chest wall: No suspicious bony lesions. Overlying soft tissues appear unremarkable. IMPRESSION: Cardiomegaly, mild vascular congestion and small right pleural effusion with atelectasis and or infil trate Reviewed by: Pawel Urena MD on 06/30/2021 4:53 PM AKDT Approved by: Pawel Urena MD on 06/30/2021 4:53 PM AKDT Station ID: [id number]
[2021-06-30 17:58] LABS: BILIRUBIN,URINE NEGATIVE (NEGATIVE); GLUCOSE, URINE (UA) NEGATIVE (NEGATIVE); KETONES,URINE (UA) TRACE mg/dL (NEGATIVE); LEUKOCYTE ESTERASE, URINE NEGATIVE (NEGATIVE); NITRITE,URINE NEGATIVE (NEGATIVE); OCCULT BLOOD,URINE TRACE-INTA (NEGATIVE); PROTEIN,URINE NEGATIVE (NEGATIVE); UROBILINOGEN,URINE 0.2 (NORMAL) E.U./dL (NORMAL)
[2021-06-30 18:02] LABS: CLARITY,URINE CLEAR (CLEAR)
[2021-06-30 18:47] VITALS: BP 136/69
== END 2021-06-30 18:45 | disposition home or self-care (01) ==
LOC: ED 15:41
DX: S09.90XA Unspecified injury of head, initial encounter (principal); W18.30XA Fall on same level, unspecified, initial encounter; I48.20 Chronic atrial fibrillation, unspecified; R55 Syncope and collapse; I50.9 Heart failure, unspecified; I51.7 Cardiomegaly; J90 Pleural effusion, not elsewhere classified; Z79.01 Long term (current) use of anticoagulants
CPT/HCPCS: 36415; 80053; 81001; 81003; 83690; 83880; 84484; 85025; 87086; 93005; 96360; 99284